=== PATIENT | male | born 1960 | race Caucasian/White ===

== ENCOUNTER 2017-09-23 13:05 | Inpatient (IN) | END 2017-09-24 16:08 | disposition home or self-care (01) | DRG 69 ==

== ENCOUNTER 2018-08-07 10:00 | Inpatient (IN) | payer OTHER ==
[2018-08-04 17:03] VITALS: BMI 27.0
[2018-08-07] VITALS (20 sets, daily range): BP systolic 144–171; BP diastolic 77–91; PULSE 75–100; RESP 13–18; Ht 167.6 cm; Wt 78.1 kg
[~2018-08-07] VITALS: Ht 167.6 cm; Wt 78.1 kg
[~2018-08-07 10:00] MED LIST: AMLO-145 PO; ASPI325T32 PO; ATOR40TA68 PO; BENA40TA56 PO; CEFAZOLIN 1 GM INJ ONE; FENO145T37 PO; HYDR-3672 PO; HYDR25TA6 PO; LORA10TA3 PO; METF-480 PO; ROCURONIUM 50 MG INJ ONE
[2018-08-07] MEDS ORDERED: CETI10TA34 PO (11:51)
[2018-08-07] MEDS ORDERED: ATOR10TA65 PO (11:52)
[2018-08-07] MEDS ORDERED: CETI10TA19 PO (11:53)
[2018-08-07] MEDS ORDERED: POLYMYXIN/BACITRACIN 1L IRRIG ONE (13:05)
--- NOTE | 2018-08-07 13:10 | PREAC ---
Date/Time of Note Date/Time of Note DATE: 08/07/18 TIME: 13:08 Anesthesia Eval and Record Evaluation Time Pre-Procedure Interview DATE: 08/07/18 TIME: 13:08 Age 57 Sex male NPO: 8 hrs Preoperative diagnosis ABDOMINAL WALL DEFECT, VENTRAL HERNIA Planned procedure OPEN COMPONENT SEPERATION WITH MESH, OVETRAL HERNIA REPAIR Past Medical History Past Medical History: Includes Cardio: HTN, Dyslipidemia Endo: Diabetes Neuro: Other (tia) Surgery & Anesthesia Issues No known issue Meds Anticoagulation: No Beta Jaci within 24 hr: No Reason Beta Jaci not given: Pt. not on B-Jaci Active Scripts Aspirin* (Aspirin* EC) 325 Mg Tab, 325 MG PO DAILY, #90 TAB Prov:CHEPE SANDERSON MD 09/24/17 Reported Medications Atorvastatin Calcium (Atorvastatin Calcium) 10 Mg Tablet, 10 MG PO QHS, #30 TAB 08/07/18 Cetirizine Hcl* (Cetirizine Hcl*) 10 Mg Tab.chew, 10 MG PO DAILY, #30 TAB 08/07/18 Amlodipine Besylate* (Amlodipine Besylate*) 5 Mg Tablet, 5 MG PO QPM, #30 TAB 09/23/17 Fenofibrate Nanocrystallized* (Fenofibrate*) 145 Mg Tablet, 145 MG PO DAILY, TAB 09/23/17 Metformin* (Glucophage*) 850 Mg Tablet, 850 MG PO WITH MEALS, #90 TAB 09/23/17 Hydralazine Hcl* (Hydralazine Hcl*) 50 Mg Tab, 50 MG PO DAILY, #60 TAB 09/23/17 Benazepril Hcl* (Benazepril Hcl*) 40 Mg Tablet, 40 MG PO DAILY, #30 TAB 09/23/17 Hydrochlorothiazide* (Hydrochlorothiazide*) 25 Mg Tab, 25 MG PO DAILY, #60 TAB 04/23/16 Discontinued Reported Medications Cetirizine Hcl* (Cetirizine Hcl*) 10 Mg Tablet, 10 MG PO DAILY 08/07/18 Loratadine* (Loratadine*) 10 Mg Tablet, 10 MG PO DAILY, #30 TAB 09/23/17 Discontinued Scripts Atorvastatin* (Atorvastatin*) 40 Mg Tablet, 40 MG PO QHS, #90 TAB Prov:CHEPE SANDERSON MD 09/24/17 Current Medications Cefazolin Sodium/ Dextrose 50 ml @ 100 mls/hr PRE-OP ONCE IVPB ; Start 08/07/18 at 13:30; Stop 08/07/18 at 13:59 Sodium Chloride 1,000 ml @ 75 mls/hr [id number] ONCE IV ; Start 08/07/18 at 13:30; Stop 08/08/18 at 02:49 Meds reviewed: Yes Allergies Coded Allergies: No Known Allergy (Unverified , 09/23/17) Allergies Reviewed: Yes Labs/Studies Labs Reviewed: Reviewed by anesthesiologist test: N/A Studies: ECG (SR), CXR (NL) Pre-procedure Exam Last vitals Vital Signs Date Temp Pulse Resp B/P (MAP) Pulse Ox O2 O2 Flow FiO2 Time Delivery Rate 08/07/18 96.0 75 18 146/78 97 Room Air 12:59 (100) Airway: Adequate mouth opening Mallampati: Mallampati II Teeth: Normal Lung: Normal Heart: Normal ASA Physical Status ASA physical status: 2 Emergency: None Planned Anesthetic General/MAC: ETT Nerve block: TAP (bilateral) Planned Pain Management Single shot nerve block, Parenteral pain med Pre-operative Attestations Prior to commencing anesthesia and surgery, the patient was re-evaluated, there was verification of: *The patient's identity *The results of appropriate recent lab work and preoperative vital signs *The above evaluation not changing prior to induction *Anesthetic plan, risk benefits, alternative and complications discussed with patient/family; questions answered; patient/family understands, accepts and wishes to proceed. LIZY BYERS MD Aug 07, 2018 13:10
[2018-08-07] MEDS ORDERED: MIDAZOLAM 1 MG/ML 2 ML INJ ONE (13:14)
[2018-08-07] MEDS ORDERED: PROPOFOL 20 ML ONE (13:14)
[2018-08-07] MEDS ORDERED: METOCLOPRAMIDE 10 MG INJ ONE (13:15)
[2018-08-07] MEDS ORDERED: ROPIVACAINE 0.5 % 30 ML VIAL ONE (13:15)
[2018-08-07] MEDS ORDERED: ONDANSETRON 4 MG INJ ONE (13:15)
[2018-08-07] MEDS ORDERED: DIPHENHYDRAMINE 50 MG INJ IV PRN (13:30)
[2018-08-07] MEDS ORDERED: CEFAZOLIN 2 GM/50 ML (PMX) 50 ML IVPB ONE (13:30)
[2018-08-07] MEDS ORDERED: ONDANSETRON 4 MG INJ IV PRN (13:30)
[2018-08-07] MEDS ORDERED: LABETALOL HCL 20MG INJ IV PRN (13:30)
[2018-08-07] MEDS ORDERED: MEPERIDINE 25 MG INJ IV PRN (13:30)
[2018-08-07] MEDS ORDERED: SOD CHLORIDE 0.9% 1,000 ML IV ONE (13:30)
[2018-08-07] MEDS ORDERED: HYDROmorphONE 1 MG/5 ML IV SYRINGE IV PRN ×3 (13:30)
[2018-08-07] MEDS ORDERED: hydrALAzine 20 MG INJ IV PRN (13:30)
[2018-08-07] MEDS ORDERED: HYDROmorphONE 2 MG/ML SYG ONE (13:49)
[2018-08-07] MEDS ORDERED: ROCURONIUM 50 MG INJ ONE (13:54)
[2018-08-07] MEDS ORDERED: NEOSTIGMINE 10 MG INJ ONE (14:43)
[2018-08-07] MEDS ORDERED: BUPIVACAINE 0.25% (MPF) 30 ML INJ ONE (14:43)
[2018-08-07] MEDS ORDERED: GLYCOPYRROLATE 0.4 MG INJ ONE (14:43)
[2018-08-07] MEDS ORDERED: HYDROmorphONE 0.2 MG/ML PCA IV SCH (15:00)
[2018-08-07] MEDS ORDERED: NALOXONE (0.4 MG/ML) INJ IV PRN (15:00)
[2018-08-07] MEDS ORDERED: EPHEDrine 50 MG INJ ONE (15:03)
--- NOTE | 2018-08-07 15:08 | OPR ---
Date/Time of Note Date/Time of Note DATE: 08/07/18 TIME: 14:54 Operative Report Procedure Date: Aug 07, 2018 Preoperative Diagnosis abdominal wall defect midepigastric ventral hernia umbilical hernia Postoperative Diagnosis same Operation/Procedure Performed 1. right rectus musculocutaneous flap cpt code 72576 2. left rectus musculocutaneous flap cpt code 03292 3. midepigastric incarcerated ventral hernia repair cpt code 76842 4. implantation fo 15 x 15 polypropylene mesh x 2 cpt code 19441 5. incarcerated umbilical hernia repair cpt code 6. localized adjacent tissue transfer with the use of skin flaps 69 sq cm defect of the abdomen 7. open lysis of adhesions 8. therapeutic injection of subcutaneous local anesthesia Surgeon see signature line Registered Nurse Renal Shola Marin Anesthesia Type: general Estimated Blood Loss: 10 - 50 ml's Transfusion none Specimen none Grafts/Implants none Complications none Pt Condition Post Procedure: stable Indications This is a 57-year-old male with a very large abdominal wall defect and a mid epigastric ventral hernia and umbilical hernia. He requires surgical repair. Risks alternatives benefits and percent were discussed the patient. In particular potential complications including but not limited to bleeding infection mesh infection mesh migration and need for additional operations were discussed the patient. In addition abdominal contour changes were discussed the patient. Patient expressed understanding and consents to the operation. Procedure Description Patient is taken to the OR and prepped and draped in usual sterile fashion. Surgical time was performed. IV antibiotics were given. Midline generous incis ion was made from the subxiphoid region around to the area of the anupam-umbilicus and inferior to the umbilicus. Dissection with cautery was carried down to the midepigastric area where the decussation of the rectus sheath is found. This was then divided and opened. This was carried superiorly. A mid epigastric hernia is identified as incarcerated. Lysis of adhesions performed and this hernia is then manually reduced. This incision was carried superiorly to the xiphoid area and inferiorly to the infra umbilical area. The left rectus sheath is identified in the left muscular cutaneous rectus flap is developed. The retrorectus space was then entered with cautery. This incision was extended superiorly and inferiorly all the way down to the infraumbilical area and superiorly to the subxiphoid area. Then the right rectus muscular cutaneous flap was developed. The retrorectus space in the right side was then entered with cautery. This incision extended superiorly to the xiphoid region and inferiorly to the infraumbilical region. The posterior rectus sheath is then closed with a running #1 loop PDS from superior to inferior and inferior superior and tied in the middle. The umbilical hernia is identified. Lysis of adhesions was performed and the umbilical hernia is then manually reduced and the defect was closed. The defect is closed with interrupted #1 Prolenes. Right and left skin flaps were developed. This allowed placement of interrupted #1 Prolene suture to affix the polypropylene mesh as an underlay in the retrorectus space. The midline defect was large and 215 x 15 cm polypropylene meshes were juxtaposed with interrupted #1 Prolenes. This allowed coverage of the whole defect with the mesh. The 2 pieces of mesh was then affixed as an underlay as mentioned with interrupted #1 Prolene. Good hemostasis was established in this level of the abdominal wall. The anterior rectus sheath was then closed with running #1 loop PDS from superior to inferior and inferior superior and tied in the midline. The anterior rectus sheath was then also reinforced with additional fixation points with interrupted #1 Prolene. The skin flaps that were developed was examined for hemostasis and hemostasis was established. Additionally due to tissue defect localized adjacent tissue transfer with these of skin flaps was performed. Multilayer closure with interrupted 3-0 Vicryl and skin estefany. Therapeutic subcutaneous local anesthesia was injected throughout the incision site. A tap block was also performed by the anesthesiologist. Dry dressings were applied. Joe BARRETO Aug 07, 2018 15:08
--- NOTE | 2018-08-07 16:01 | PAC ---
Date/Time of Note Date/Time of Note DATE: 08/07/18 TIME: 16:00 Post-Anesthesia Notes Post-Anesthesia Note Last documented vital signs Vital Signs Date Temp Pulse Resp B/P (MAP) Pulse Ox O2 O2 Flow FiO2 Time Delivery Rate 08/07/18 98.1 84 14 163/85 98 Nasal 3.0 15:46 (111) Cannula 08/07/18 98.0 15:06 Activity: WNL Respiratory function: WNL Cardiovascular function: WNL Mental status: Baseline Pain reasonably controlled: Yes Hydration appropriate: Yes Nausea/Vomiting absent: No LIZY BYERS MD Aug 07, 2018 16:01
[2018-08-07] MEDS: CEFAZOLIN 2 GM/50 ML (PMX) 50 ML IVPB SCH ×2 (16:04→23:52)
[2018-08-07] MEDS ORDERED: ACETAMINOPHEN 325 MG TAB PO PRN (20:00)
[2018-08-07] MEDS: SOD CHLORIDE 0.9% 1,000 ML IV SCH (20:19)
[2018-08-07] MEDS: ONDANSETRON 4 MG INJ IV PRN (21:19)
[2018-08-07] MEDS ORDERED: DEXTROSE 50% 50 ML SYRINGE IV PRN ×2 (22:00)
[2018-08-07] MEDS ORDERED: GLUCOSE GEL 15 GRAM TUBE BUCCAL PRN (22:00)
[2018-08-07] MEDS ORDERED: GLUCOSE GEL 15 GRAM TUBE PO PRN ×2 (22:00)
[2018-08-07] MEDS ORDERED: GLUCAGON 1 MG INJ IM PRN (22:00)
--- NOTE | 2018-08-08 00:21 | HP ---
DATE OF ADMISSION: 08/07/2018 CHIEF COMPLAINT AND HISTORY OF PRESENT ILLNESS: The patient is 57-year-old gentleman with a history of hypertension, diabetes, dyslipidemia, and a history of TIA. The patient was seen by Dr. Fields as an outpatient for a mid epigastric ventral hernia and umbilical hernia. [facility] Prior to surgery, the patient has a very large abdominal wall defect and a mid ep igastric ventral hernia and umbilical hernia. The patient underwent a surgical repair and is being a dmitted for further evaluation and management. The patient denies any chest pain or shortness of nahid ath. No history of headache, dizziness, syncope. No recent history of TIA since last year. No hist ory of leg edema. No history of resting leg pain. No history of numbness, tingling, or weakness in any extremity. No history of headache, dizziness, syncope. No history of cough. REVIEW OF SYSTEMS: Other than postoperative pain, rest of the systems is unremarkable. PAST MEDICAL HISTORY: As stated above. In addition, the patient has history of TIA back in 09/2017. The patient had negative MRI of the brain. PAST SURGICAL HISTORY: None. FAMILY HISTORY: Positive for diabetes, hypertension, and CVA. SOCIAL HISTORY: No smoking or alcohol abuse. ALLERGIES: NO KNOWN DRUG ALLERGIES. PHYSICAL EXAMINATION: GENERAL: The patient is awake, alert, follows simple commands. VITAL SIGNS: Temperature 98, pulse 81, respirations 14, blood pressure 154/77, O2 saturation 99% on 3 liters nasal canula. HEENT: No eye discharge or redness. Conjunctivae normal. Oropharynx clear. NECK: Supple. No thyromegaly. CHEST: Fairly clear. CARDIOVASCULAR: S1, S2 normal, no murmur. ABDOMEN: The patient is status post surgery. EXTREMITIES: No edema. Pedal pulse palpable. SKIN: Without acute rash. NEUROLOGIC: The patient is awake, alert with no gross focal deficit. LABORATORY DATA: Done today, WBC 9.8, hemoglobin 13.3, platelet 181. Sodium 146, potassium 4, BUN 1 6, creatinine 1, glucose 98. Liver enzymes normal. IMPRESSION: 1. Large abdominal wall defect in mid epigastric ventral hernia and umbilical hernia status post fransisco gical repair. 2. Hypertension. 3. Diabetes mellitus. 4. Dyslipidemia. 5. History of cerebrovascular accident. 6. History of transient ischemic attack. PLAN: The patient admitted on medical floor. The patient will be started on Norvasc, benazepril and p.r.n. hydralazine for hypertension and will be continued on TriCor and Lipitor as at home. The pat ient also takes metformin which will be continued. The patient's hemoglobin A1c back in September 2017 was only 5.9 and blood sugar this morning was 98. We will use SCD for DVT prophylaxis. The patient ramesh l continue baby aspirin starting tomorrow. We will also start him on sliding scale insulin. Dictated By: EFRAIN DOMINGUEZ MD AB/NTS Conf#: [id number] DID#: [id number] CC: CHIN FIELDS MD;*End*
[2018-08-08] MEDS: SOD CHLORIDE 0.9% 1,000 ML IV SCH ×5 (00:50→20:50)
[2018-08-08 02:00] VITALS: BP 168/80; PULSE 96; RESP 18
[2018-08-08] MEDS: ONDANSETRON 4 MG INJ IV PRN ×2 (02:57→12:36)
[2018-08-08] MEDS: CEFAZOLIN 2 GM/50 ML (PMX) 50 ML IVPB SCH (06:02)
[2018-08-08 06:18] VITALS: BP 158/80; PULSE 87; RESP 18
[2018-08-08 07:30] VITALS: BP 167/81; PULSE 89; RESP 20
[2018-08-08] MEDS: BENAZEPRIL 40 MG TAB PO SCH (08:25)
[2018-08-08] MEDS: ASPIRIN (EC) 81 MG TAB PO SCH (08:26)
[2018-08-08] MEDS: metFORMIN 850 MG TAB PO SCH ×3 (08:29→17:30)
[2018-08-08] MEDS: FENOFIBRATE 145 MG TAB PO SCH (08:30)
[2018-08-08] MEDS: INSULIN ASPART [NOVOLOG] 3 ML PEN SC SCH ×4 (08:35→21:00)
[2018-08-08 10:09] VITALS: BP 154/82; PULSE 86; RESP 18
--- NOTE | 2018-08-08 13:04 | PN ---
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0 Basophils % 0.3 0.1 Nucleated Red Blood 0.0 0.0 Cells % Immature 0.050 H 0.060 H Granulocytes # Neutrophils # 7.6 H 10.0 H Lymphocytes # 1.5 1.0 Monocytes # 0.6 0.9 Eosinophils # 0.0 0.0 Basophils # 0.0 0.0 Nucleated Red Blood 0.0 0.0 Cells # Sodium Level 146 H 139 Potassium Level 4.0 3.7 Chloride Level 106 101 Carbon Dioxide Level 25 26 Anion Gap 15 H 12 Blood Urea Nitrogen 16 13 Creatinine 1.02 0.85 Est Glomerular > 60 > 60 Filtrat Rate mL/min Glucose Level 98 127 Calcium Level 8.6 8.3 L Total Bilirubin 0.5 0.7 Direct Bilirubin 0.00 0.00 Indirect Bilirubin 0.5 0.7 Aspartate Amino 29 24 Transf (AST/SGOT) Alanine 31 26 Aminotransferase (AL T/SGPT) Alkaline Phosphatase 59 56 Total Protein 7.5 6.9 Albumin 4.6 4.1 Globulin 2.90 2.80 Albumin/Globulin 1.58 1.46 Ratio Bedside Glucose 160 153 Subjective 24 Hr Interval Summary Free Text/Dictation some nausea otherwise no other issues Exam/Review of Systems Exam Vitals Vital Signs Date Temp Pulse Resp B/P (MAP) Pulse Ox O2 O2 Flow FiO2 Time Delivery Rate 08/08/18 98.5 86 18 154/82 98 Nasal 3.0 10:09 (106) Cannula Intake and Output 08/07/18 08/07/18 08/08/18 1515:00 23:00 07:00 IntakeIntake Total 1000 ml 50 ml 1050 ml OutputOutput Total 30 ml BalanceBalance 970 ml 50 ml 1050 ml Exam c/d/i Results Results 24hrs Laboratory Tests Test 08/07/18 15:56 08/08/18 06:47 08/08/18 08:29 08/08/18 12:38 White Blood Count 9.8 # 12.0 #H Red Blood Count 4.21 L 3.85 L Hemoglobin 13.3 L 12.2 L Hematocrit 39.8 L 36.0 L Mean Corpuscular 94.5 93.5 Volume Mean Corpuscular 31.6 31.7 Hemoglobin Mean Corpuscular 33.4 33.9 Hemoglobin Concent Red Cell 13.0 12.9 Distribution Width Platelet Count 181 174 Mean Platelet Volume 10.8 H 10.9 H Immature 0.500 H 0.500 H Granulocytes % Neutrophils % 77.6 H 83.9 H Lymphocytes % 15.5 8.1 L Monocytes % 5.8 7.4 Eosinophils % 0.3 0.0 Basophils % 0.3 0.1 Nucleated Red Blood 0.0 0.0 Cells % Immature 0.050 H 0.060 H Granulocytes # Neutrophils # 7.6 H 10.0 H Lymphocytes # 1.5 1.0 Monocytes # 0.6 0.9 Eosinophils # 0.0 0.0 Basophils # 0.0 0.0 Nucleated Red Blood 0.0 0.0 Cells # Sodium Level 146 H 139 Potassium Level 4.0 3.7 Chloride Level 106 101 Carbon Dioxide Level 25 26 Anion Gap 15 H 12 Blood Urea Nitrogen 16 13 Creatinine 1.02 0.85 Est Glomerular > 60 > 60 Filtrat Rate mL/min Glucose Level 98 127 Calcium Level 8.6 8.3 L Total Bilirubin 0.5 0.7 Direct Bilirubin 0.00 0.00 Indirect Bilirubin 0.5 0.7 Aspartate Amino 29 24 Transf (AST/SGOT) Alanine 31 26 Aminotransferase (AL T/SGPT) Alkaline Phosphatase 59 56 Total Protein 7.5 6.9 Albumin 4.6 4.1 Globulin 2.90 2.80 Albumin/Globulin 1.58 1.46 Ratio Bedside Glucose 160 153 Medications Medication Current Medications Cefazolin Sodium/ Dextrose 50 ml @ 100 mls/hr Q8H IVPB Last administered on 08/08/18 06:02; Admin Dose 100 MLS/HR; Start 08/07/18 at 15:00; Stop 08/08/18 at 14:59 Ketorolac Tromethamine (Toradol) 15 mg Q6H PRN IV PAIN; Start 08/07/18 at 15:00; Stop 08/10/18 at 14:59 Sodium Chloride 1,000 ml @ 100 mls/hr Q10H IV Last administered on 08/08/18 05:52; Admin Dose 100 MLS/HR; Start 08/07/18 at 14:50 Naloxone HCl (Narcan) 0.2 mg PRN PRN IV RR < 8; Start 08/07/18 at 15:00 Hydromorphone HCl (Dilaudid MANAGER SHIFT) Q4PCA IV Last administered on 08/07/18 16:06; Admin Dose 6 MG; Start 08/07/18 at 15:00 Acetaminophen (Tylenol Tab) 650 mg Q6H PRN PO MILD PAIN(1-3)OR ELEVATED TEMP Last administered on 08/08/18 05:51; Admin Dose 650 MG; Start 08/07/18 at 20:00 Ondansetron HCl (Zofran Inj) 4 mg Q6H PRN IV NAUSEA AND/OR VOMITING Last administered on 08/08/18 12:36; Admin Dose 4 MG; Start 08/07/18 at 20:00 Hydralazine HCl (Apresoline) 10 mg Q4 PRN PO ELEVATED BLOOD PRESSURE Last administered on 08/08/18 03:46; Admin Dose 10 MG; Start 08/07/18 at 21:30 Amlodipine Besylate (Norvasc) 5 mg QPM PO ; Start 08/08/18 at 21:00 Atorvastatin Calcium (Lipitor) 10 mg QHS PO ; Start 08/08/18 at 21:00 Benazepril HCl (Lotensin) 40 mg DAILY PO Last administered on 08/08/18 08:25; Admin Dose 40 MG; Start 08/08/18 at 09:00 Fenofibrate (Tricor) 145 mg DAILY PO Last administered on 08/08/18 08:30; Ad min Dose 145 MG; Start 08/08/18 at 09:00 Metformin HCl (Glucophage) 850 mg WITH MEALS PO Last administered on 08/08/18 12:39; Admin Dose 850 MG; Start 08/08/18 at 08:00 Miscellaneous Information 1 ea NOTE XX ; Start 08/07/18 at 22:00 Glucose (Glutose) 15 gm Q15M PRN PO DECREASED GLUCOSE; Start 08/07/18 at 22:00 Glucose (Glutose) 22.5 gm Q15M PRN PO DECREASED GLUCOSE; Start 08/07/18 at 22:00 Dextrose (D50w Syringe) 25 ml Q15M PRN IV DECREASED GLUCOSE; Start 08/07/18 at 22:00 Dextrose (D50w Syringe) 50 ml Q15M PRN IV DECREASED GLUCOSE; Start 08/07/18 at 22:00 Glucagon (Glucagen) 1 mg Q15M PRN IM DECREASED GLUCOSE; Start 08/07/18 at 22:00 Glucose (Glutose) 15 gm Q15M PRN BUCCAL DECREASED GLUCOSE; Start 08/07/18 at 22:00 Insulin Aspart (Novolog Insulin Pen) NOVOLOG *MILD* ALGORITHM WITH MEALS BEDTIME SC Last administered on 08/08/18 12:41; Admin Dose 1 UNIT; Start 08/08/18 at 08:00 Aspirin (Halfprin) 81 mg DAILY PO Last administered on 08/08/18 08:26; Admin Dose 81 MG; Start 08/08/18 at 09:00 Joe BARRETO Aug 08, 2018 13:04
[2018-08-08] MEDS ORDERED: morphine 2 MG INJ IV PRN (13:30)
--- NOTE | 2018-08-08 14:29 | PN ---
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 Assessment/Plan 1. Large abdominal wall defect in mid epigastric ventral hernia and umbilical hernia status post surgical repair. 2. Hypertension. 3. Diabetes mellitus. 4. Dyslipidemia. 5. History of cerebrovascular accident. 6. History of transient ischemic attack. Further recommendations based on clinical course. Plan of care discussed with Dr. Carrizales. Result Diagram: 08/08/18 0647 08/08/18 0647 Results 24hrs Laboratory Tests Test 08/07/18 15:56 08/08/18 06:47 08/08/18 08:29 08/08/18 12:38 White Blood Count 9.8 # 12.0 #H Red Blood Count 4.21 L 3.85 L Hemoglobin 13.3 L 12.2 L Hematocrit 39.8 L 36.0 L Mean Corpuscular 94.5 93.5 Volume Mean Corpuscular 31.6 31.7 Hemoglobin Mean Corpuscular 33.4 33.9 Hemoglobin Concent Red Cell 13.0 12.9 Distribution Width Platelet Count 181 174 Mean Platelet Volume 10.8 H 10.9 H Immature 0.500 H 0.500 H Granulocytes % Neutrophils % 77.6 H 83.9 H Lymphocytes % 15.5 8.1 L Monocytes % 5.8 7.4 Eosinophils % 0.3 0.0 Basophils % 0.3 0.1 Nucleated Red Blood 0.0 0.0 Cells % Immature 0.050 H 0.060 H Granulocytes # Neutrophils # 7.6 H 10.0 H Lymphocytes # 1.5 1.0 Monocytes # 0.6 0.9 Eosinophils # 0.0 0.0 Basophils # 0.0 0.0 Nucleated Red Blood 0.0 0.0 Cells # Sodium Level 146 H 139 Potassium Level 4.0 3.7 Chloride Level 106 101 Carbon Dioxide Level 25 26 Anion Gap 15 H 12 Blood Urea Nitrogen 16 13 Creatinine 1.02 0.85 Est Glomerular > 60 > 60 Filtrat Rate mL/min Glucose Level 98 127 Calcium Level 8.6 8.3 L Total Bilirubin 0.5 0.7 Direct Bilirubin 0.00 0.00 Indirect Bilirubin 0.5 0.7 Aspartate Amino 29 24 Transf (AST/SGOT) Alanine 31 26 Aminotransferase (AL T/SGPT) Alkaline Phosphatase 59 56 Total Protein 7.5 6.9 Albumin 4.6 4.1 Globulin 2.90 2.80 Albumin/Globulin 1.58 1.46 Ratio Bedside Glucose 160 153 Exam/Review of Systems Exam Vitals Vital Signs Date Temp Pulse Resp B/P (MAP) Pulse Ox O2 O2 Flow FiO2 Time Delivery Rate 08/08/18 17 13:07 08/08/18 98.5 86 154/82 98 Nasal 3.0 10:09 (106) Cannula Intake and Output 08/07/18 08/07/18 08/08/18 1515:00 23:00 07:00 IntakeIntake Total 1000 ml 50 ml 1050 ml OutputOutput Total 30 ml BalanceBalance 970 ml 50 ml 1050 ml Constitutional: alert, oriented Respiratory: clear to auscultation Cardiovascular: nl pulses Gastrointestinal: soft, other (Status post surgery with midline surgical incision intact with dressing) Musculoskeletal: nl extremities to inspection Extremities: normal pulses Neurological: nl mental status Results Results 24hrs Laboratory Tests Test 08/07/18 15:56 08/08/18 06:47 08/08/18 08:29 08/08/18 12:38 White Blood Count 9.8 # 12.0 #H Red Blood Count 4.21 L 3.85 L Hemoglobin 13.3 L 12.2 L Hematocrit 39.8 L 36.0 L Mean Corpuscular 94.5 93.5 Volume Mean Corpuscular 31.6 31.7 Hemoglobin Mean Corpuscular 33.4 33.9 Hemoglobin Concent Red Cell 13.0 12.9 Distribution Width Platelet Count 181 174 Mean Platelet Volume 10.8 H 10.9 H Immature 0.500 H 0.500 H Granulocytes % Neutrophils % 77.6 H 83.9 H Lymphocytes % 15.5 8.1 L Monocytes % 5.8 7.4 Eosinophils % 0.3 0.0 Basophils % 0.3 0.1 Nucleated Red Blood 0.0 0.0 Cells % Immature 0.050 H 0.060 H Granulocytes # Neutrophils # 7.6 H 10.0 H Lymphocytes # 1.5 1.0 Monocytes # 0.6 0.9 Eosinophils # 0.0 0.0 Basophils # 0.0 0.0 Nucleated Red Blood 0.0 0.0 Cells # Sodium Level 146 H 139 Potassium Level 4.0 3.7 Chloride Level 106 101 Carbon Dioxide Level 25 26 Anion Gap 15 H 12 Blood Urea Nitrogen 16 13 Creatinine 1.02 0.85 Est Glomerular > 60 > 60 Filtrat Rate mL/min Glucose Level 98 127 Calcium Level 8.6 8.3 L Total Bilirubin 0.5 0.7 Direct Bilirubin 0.00 0.00 Indirect Bilirubin 0.5 0.7 Aspartate Amino 29 24 Transf (AST/SGOT) Alanine 31 26 Aminotransferase (AL T/SGPT) Alkaline Phosphatase 59 56 Total Protein 7.5 6.9 Albumin 4.6 4.1 Globulin 2.90 2.80 Albumin/Globulin 1.58 1.46 Ratio Bedside Glucose 160 153 Medications Medication Current Medications Cefazolin Sodium/ Dextrose 50 ml @ 100 mls/hr Q8H IVPB Last administered on 08/08/18 06:02; Admin Dose 100 MLS/HR; Start 08/07/18 at 15:00; Stop 08/08/18 at 14:59 Ketorolac Tromethamine (Toradol) 15 mg Q6H PRN IV PAIN; Start 08/07/18 at 15:00; Stop 08/10/18 at 14:59 Sodium Chloride 1,000 ml @ 100 mls/hr Q10H IV Last administered on 08/08/18at 05:52; Admin Dose 100 MLS/HR; Start 08/07/18 at 14:50 Acetaminophen (Tylenol Tab) 650 mg Q6H PRN PO MILD PAIN(1-3)OR ELEVATED TEMP Last administered on 08/08/18 05:51; Admin Dose 650 MG; Start 08/07/18 at 20:00 Hydralazine HCl (Apresoline) 10 mg Q4 PRN PO ELEVATED BLOOD PRESSURE Last administered on 08/08/18 03:46; Admin Dose 10 MG; Start 08/07/18 at 21:30 Amlodipine Besylate (Norvasc) 5 mg QPM PO ; Start 08/08/18 at 21:00 Atorvastatin Calcium (Lipitor) 10 mg QHS PO ; Start 08/08/18 at 21:00 Benazepril HCl (Lotensin) 40 mg DAILY PO Last administered on 08/08/18 08:25; Admin Dose 40 MG; Start 08/08/18 at 09:00 Fenofibrate (Tricor) 145 mg DAILY PO Last administered on 08/08/18 08:30; Admin Dose 145 MG; Start 08/08/18 at 09:00 Metformin HCl (Glucophage) 850 mg WITH MEALS PO Last administered on 08/08/18 12:39; Admin Dose 850 MG; Start 08/08/18 at 08:00 Miscellaneous Information 1 ea NOTE XX ; Start 08/07/18 at 22:00 Glucose (Glutose) 15 gm Q15M PRN PO DECREASED GLUCOSE; Start 08/07/18 at 22:00 Glucose (Glutose) 22.5 gm Q15M PRN PO DECREASED GLUCOSE; Start 08/07/18 at 22:00 Dextrose (D50w Syringe) 25 ml Q15M PRN IV DECREASED GLUCOSE; Start 08/07/18 at 22:00 Dextrose (D50w Syringe) 50 ml Q15M PRN IV DECREASED GLUCOSE; Start 08/07/18 at 22:00 Glucagon (Glucagen) 1 mg Q15M PRN IM DECREASED GLUCOSE; Start 08/07/18 at 22:00 Glucose (Glutose) 15 gm Q15M PRN BUCCAL DECREASED GLUCOSE; Start 08/07/18 at 22:00 Insulin Aspart (Novolog Insulin Pen) NOVOLOG *MILD* ALGORITHM WITH MEALS BEDTIME SC Last administered on 08/08/18 12:41; Admin Dose 1 UNIT; Start 08/08/18 at 08:00 Aspirin (Halfprin) 81 mg DAILY PO Last administered on 08/08/18 08:26; Admin Dose 81 MG; Start 08/08/18 at 09:00 Ondansetron HCl (Zofran Inj) 4 mg Q4H PRN IV NAUSEA AND/OR VOMITING; Start 08/08/18 at 16:00 Morphine Sulfate (morphine) 2 mg Q2H PRN IV SEVERE PAIN LEVEL 7-10; Start 08/08/18 at 13:30 NILAM WICK Aug 08, 2018 14:29
[2018-08-08] MEDS ORDERED: ONDANSETRON 4 MG INJ IV PRN (16:00)
[2018-08-08 20:00] VITALS: BP 153/83; PULSE 89; RESP 19
[2018-08-08] MEDS ORDERED: ATORVASTATIN 10 MG TAB PO SCH (21:00)
[2018-08-08] MEDS ORDERED: AMLODIPINE 5 MG TAB PO SCH (21:00)
[2018-08-09 02:00] VITALS: BP 161/78; PULSE 87; RESP 18
[2018-08-09] MEDS: KETOROLAC 15 MG INJ IV PRN ×2 (02:09→12:44)
[2018-08-09] MEDS: SOD CHLORIDE 0.9% 1,000 ML IV SCH ×2 (04:55→06:50)
[2018-08-09 06:40] VITALS: BP 98/62; PULSE 80; RESP 16
[2018-08-09 07:55] VITALS: BP 113/56; PULSE 88; RESP 18
[2018-08-09] MEDS: BENAZEPRIL 40 MG TAB PO SCH (09:01)
[2018-08-09] MEDS: metFORMIN 850 MG TAB PO SCH ×2 (09:01→12:43)
[2018-08-09] MEDS: ASPIRIN (EC) 81 MG TAB PO SCH (09:01)
[2018-08-09] MEDS: FENOFIBRATE 145 MG TAB PO SCH (09:01)
[2018-08-09] MEDS: INSULIN ASPART [NOVOLOG] 3 ML PEN SC SCH ×2 (09:05→12:00)
--- NOTE | 2018-08-09 11:45 | PN ---
Date/Time of Note Date/Time of Note DATE: 08/09/18 TIME: 11:41 Assessment/Plan VTE Prophylaxis Risk score (from Nsg)>0 risk: 3 SCD applied (from Ns): Yes Pharmacological prophylaxis: other Lines/Catheters IV Catheter Type (from Nrsg): Peripheral IV Urinary Cath still in place: No Assessment/Plan Assessment/Plan 1. Large abdominal wall defect in mid epigastric ventral hernia and umbilical hernia status post surgical repair. - per surgery 2. Hypertension. 3. Diabetes mellitus. 4. Dyslipidemia. 5. History of cerebrovascular accident. 6. History of transient ischemic attack. Further recommendations based on clinical course. Plan of care discussed with Dr. Carrizales. Result Diagram: 08/09/18 0544 08/09/18 0544 Results 24hrs Laboratory Tests Test 08/08/18 12:38 08/08/18 17:25 08/08/18 21:02 08/09/18 05:44 Bedside Glucose 153 119 138 White Blood Count 10.2 Red Blood Count 3.10 L Hemoglobin 9.9 L Hematocrit 28.9 L Mean Corpuscular 93.2 Volume Mean Corpuscular 31.9 Hemoglobin Mean Corpuscular 34.3 Hemoglobin Concent Red Cell 12.9 Distribution Width Platelet Count 156 Mean Platelet Volume 11.1 H Immature 0.600 H Granulocytes % Neutrophils % 79.1 H Lymphocytes % 9.3 L Monocytes % 10.9 Eosinophils % 0.0 Basophils % 0.1 Nucleated Red Blood 0.0 Cells % Immature 0.060 H Granulocytes # Neutrophils # 8.1 H Lymphocytes # 1.0 Monocytes # 1.1 H Eosinophils # 0.0 Basophils # 0.0 Nucleated Red Blood 0.0 Cells # Sodium Level 139 Potassium Level 3.7 Chloride Level 104 Carbon Dioxide Level 27 Anion Gap 8 Blood Urea Nitrogen 15 Creatinine 0.93 Est Glomerular > 60 Filtrat Rate mL/min Glucose Level 124 Calcium Level 7.9 L Test 08/09/18 06:55 08/09/18 09:00 Bedside Glucose 117 142 Subjective 24 Hr Interval Summary Free Text/Dictation - NAD - AFEBRILE - Ambulates in hallway; Tolerates diet well; passed gas; no BM yet -- pain is well controlled with Toradol - no new events reported last night Eyes: no complaints ENT: no complaints Respiratory: no complaints Cardiovascular: no complaints Gastrointestinal: no complaints Genitourinary: no complaints Skin: no complaints Neurologic: no complaints Endocrine: no complaints Lymphatic: no complaints Immunologic: no complaints Exam/Review of Systems Exam Vitals Vital Signs Date Temp Pulse Resp B/P (MAP) Pulse Ox O2 O2 Flow FiO2 Time Delivery Rate 08/09/18 98.0 88 18 113/56 95 Room Air 07:55 (75) 08/08/18 3.0 10:09 Intake and Output 08/08/18 08/08/18 08/09/18 1515:00 23:00 07:00 IntakeIntake Total 1600 ml 1365 ml OutputOutput Total 700 ml 225 ml BalanceBalance 900 ml 1140 ml Constitutional: alert, oriented, well developed Psych: nl mood/affect Head: atraumatic Eyes: EOMI, nl lids ENMT: nl external ears & nose Respiratory: clear to auscultation Cardiovascular: nl pulses, other (s1s2) Gastrointestinal: soft, other (surgical abdomen - DDI) Musculoskeletal: nl extremities to inspection Extremities: normal pulses Neurological: nl mental status, nl speech Skin: nl turgor Lymph: nontender Results Results 24hrs Laboratory Tests Test 08/08/18 12:38 08/08/18 17:25 08/08/18 21:02 08/09/18 05:44 Bedside Glucose 153 119 138 White Blood Count 10.2 Red Blood Count 3.10 L Hemoglobin 9.9 L Hematocrit 28.9 L Mean Corpuscular 93.2 Volume Mean Corpuscular 31.9 Hemoglobin Mean Corpuscular 34.3 Hemoglobin Concent Red Cell 12.9 Distribution Width Platelet Count 156 Mean Platelet Volume 11.1 H Immature 0.600 H Granulocytes % Neutrophils % 79.1 H Lymphocytes % 9.3 L Monocytes % 10.9 Eosinophils % 0.0 Basophils % 0.1 Nucleated Red Blood 0.0 Cells % Immature 0.060 H Granulocytes # Neutrophils # 8.1 H Lymphocytes # 1.0 Monocytes # 1.1 H Eosinophils # 0.0 Basophils # 0.0 Nucleated Red Blood 0.0 Cells # Sodium Level 139 Potassium Level 3.7 Chloride Level 104 Carbon Dioxide Level 27 Anion Gap 8 Blood Urea Nitrogen 15 Creatinine 0.93 Est Glomerular > 60 Filtrat Rate mL/min Glucose Level 124 Calcium Level 7.9 L Test 08/09/18 06:55 08/09/18 09:00 Bedside Glucose 117 142 Medications Medication Current Medications Ketorolac Tromethamine (Toradol) 15 mg Q6H PRN IV PAIN Last administered on 08/09/18 02:09; Admin Dose 15 MG; Start 08/07/18 at 15:00; Stop 08/10/18 at 14:59 Sodium Chloride 1,000 ml @ 100 mls/hr Q10H IV Last administered on 08/09/18 04:55; Admin Dose 100 MLS/HR; Start 08/07/18 at 14:50 Acetaminophen (Tylenol Tab) 650 mg Q6H PRN PO MILD PAIN(1-3)OR ELEVATED TEMP Last administered on 08/08/18 05:51; Admin Dose 650 MG; Start 08/07/18 at 20:00 Hydralazine HCl (Apresoline) 10 mg Q4 PRN PO ELEVATED BLOOD PRESSURE Last administered on 08/09/18 01:54; Admin Dose 10 MG; Start 08/07/18 at 21:30 Amlodipine Besylate (Norvasc) 5 mg QPM PO Last administered on 08/08/18 21:05; Admin Dose 5 MG; Start 08/08/18 at 21:00 Atorvastatin Calcium (Lipitor) 10 mg QHS PO Last administered on 08/08/18 21:05; Admin Dose 10 MG; Start 08/08/18 at 21:00 Benazepril HCl (Lotensin) 40 mg DAILY PO Last administered on 08/09/18 09:01; Admin Dose 40 MG; Start 08/08/18 at 09:00 Fenofibrate (Tricor) 145 mg DAILY PO Last administered on 08/09/18 09:01; Admin Dose 145 MG; Start 08/08/18 at 09:00 Metformin HCl (Glucophage) 850 mg WITH MEALS PO Last administered on 08/09/18 09:01; Admin Dose 850 MG; Start 08/08/18 at 08:00 Miscellaneous Information 1 ea NOTE XX ; Start 08/07/18 at 22:00 Glucose (Glutose) 15 gm Q15M PRN PO DECREASED GLUCOSE; Start 08/07/18 at 22:00 Glucose (Glutose) 22.5 gm Q15M PRN PO DECREASED GLUCOSE; Start 08/07/18 at 22:00 Dextrose (D50w Syringe) 25 ml Q15M PRN IV DECREASED GLUCOSE; Start 08/07/18 at 22:00 Dextrose (D50w Syringe) 50 ml Q15M PRN IV DECREASED GLUCOSE; Start 08/07/18 at 22:00 Glucagon (Glucagen) 1 mg Q15M PRN IM DECREASED GLUCOSE; Start 08/07/18 at 22:00 Glucose (Glutose) 15 gm Q15M PRN BUCCAL DECREASED GLUCOSE; Start 08/07/18 at 22:00 Insulin Aspart (Novolog Insulin Pen) NOVOLOG *MILD* ALGORITHM WITH MEALS BE DTIME SC Last administered on 08/09/18 09:05; Admin Dose 1 UNIT; Start 08/08/18 at 08:00 Aspirin (Halfprin) 81 mg DAILY PO Last administered on 08/09/18at 09:01; Admin Dose 81 MG; Start 08/08/18 at 09:00 Ondansetron HCl (Zofran Inj) 4 mg Q4H PRN IV NAUSEA AND/OR VOMITING Last administered on 08/08/18 17:26; Admin Dose 4 MG; Start 08/08/18 at 16:00 Morphine Sulfate (morphine) 2 mg Q2H PRN IV SEVERE PAIN LEVEL 7-10; Start 08/08/18 at 13:30 FAVIOLA CASTREJON Aug 09, 2018 11:45
--- NOTE | 2018-08-09 12:21 | PDOCDIS ---
Discharge Instructions CONDITION [id number] Patient Condition: [id number] Stable HOME CARE INSTRUCTIONS: [id number] Diet Instructions: [id number] Reduced Calorie ACTIVITY: [id number] Activity Restrictions: Peest7x Slowly Increase Activity Rest between Activity Avoid heavy lifting Do not Drive Do not operate Machinery Do not operate Power Tool Avoid Heavy Housework [id number] Bathing Restrictions: [id number] Sponge Bath FOLLOW UP/APPOINTMENTS Follow-up Plan FU with PMD X 1 WEEK FU W/SURGEON RECOMMENDED CALL 911 OR GO TO THE [facility] IF SYMPTOMS GET WORSE- PATIENT VERBALIZED UNDERSTANDING DISCHARGE INSTRUCTIONS DW DR DOMINGUEZ/STAFF FAVIOLA CASTREJON Aug 09, 2018 12:21
--- NOTE | 2018-08-09 12:21 | DS ---
Date/Time of Note Date/Time of Note DATE: 08/09/18 TIME: 12:21 Discharge Summary Admission/Discharge Info Admit Date/Time Aug 07, 2018 at 16:18 Discharge Date/Time Patient Condition: Stable Home Meds Active Scripts Aspirin* (Aspirin* EC) 325 Mg Tab, 325 MG PO DAILY, #90 TAB Prov:CHEPE SANDERSON MD 09/24/17 Reported Medications Atorvastatin Calcium (Atorvastatin Calcium) 10 Mg Tablet, 10 MG PO QHS, #30 TAB 08/07/18 Cetirizine Hcl* (Cetirizine Hcl*) 10 Mg Tab.chew, 10 MG PO DAILY, #30 TAB 08/07/18 Amlodipine Besylate* (Amlodipine Besylate*) 5 Mg Tablet, 5 MG PO QPM, #30 TAB 09/23/17 Fenofibrate Nanocrystallized* (Fenofibrate*) 145 Mg Tablet, 145 MG PO DAILY, TAB 09/23/17 Metformin* (Glucophage*) 850 Mg Tablet, 850 MG PO WITH MEALS, #90 TAB 09/23/17 Hydralazine Hcl* (Hydralazine Hcl*) 50 Mg Tab, 50 MG PO DAILY, #60 TAB 09/23/17 Benazepril Hcl* (Benazepril Hcl*) 40 Mg Tablet, 40 MG PO DAILY, #30 TAB 09/23/17 Hydrochlorothiazide* (Hydrochlorothiazide*) 25 Mg Tab, 25 MG PO DAILY, #60 TAB 04/23/16 Discontinued Reported Medications Cetirizine Hcl* (Cetirizine Hcl*) 10 Mg Tablet, 10 MG PO DAILY 08/07/18 Loratadine* (Loratadine*) 10 Mg Tablet, 10 MG PO DAILY, #30 TAB 09/23/17 Discontinued Scripts Atorvastatin* (Atorvastatin*) 40 Mg Tablet, 40 MG PO QHS, #90 TAB Prov:CHEPE SANDERSON MD 09/24/17 Follow-up Plan FU with PMD X 1 WEEK FU W/SURGEON RECOMMENDED CALL 911 OR GO TO THE [facility] IF SYMPTOMS GET WORSE- PATIENT VERBALIZED UNDERSTANDING DISCHARGE INSTRUCTIONS DW DR DOMINGUEZ/STAFF Primary Care Provider Zak Arias MD Pending Labs Laboratory Tests Test 08/08/18 12:38 08/08/18 17:25 08/08/18 21:02 08/09/18 05:44 Bedside 153 119 138 Glucose mg/dL (70-220) mg/dL (70-220) mg/dL (70-220) White Blood 10.2 Count 10^3/ul (4.8-1 0.8) Red Blood 3.10 Count 10^6/ul (4.70- 6.10) Hemoglobin 9.9 g/dl (14.0-18. 0) Hematocrit 28.9 % (42.0-52.0) Mean 93.2 Corpuscular fl (82.0-101.0 Volume ) Mean 31.9 Corpuscular pg (29.0-33.0) Hemoglobin Mean 34.3 Corpuscular g/dl (32.0-37. Hemoglobin Conc 0) ent Red Cell 12.9 Distribution % (11.5-14.5) Width Platelet Count 156 10^3/UL (140-4 15) Mean Platelet 11.1 Volume fl (7.4-10.4) Immature 0.600 Granulocytes % % (0.001-0.429 ) Neutrophils % 79.1 % (39.0-77.0) Lymphocytes % 9.3 % (15.0-51.0) Monocytes % 10.9 % (0.0-11.0) Eosinophils % 0.0 % (0.0-7.0) Basophils % 0.1 % (0.0-2.0) Nucleated Red 0.0 Blood Cells % /100WBC (0.0-0 .0) Immature 0.060 Granulocytes # 10^3/ul (0.0-0 .031) Neutrophils # 8.1 10^3/ul (1.6-7 .5) Lymphocytes # 1.0 10^3/ul (0.8-2 .9) Monocytes # 1.1 10^3/ul (0.3-0 .9) Eosinophils # 0.0 10^3/ul (0.0-0 .5) Basophils # 0.0 10^3/ul (0.0-0 .1) Nucleated Red 0.0 Blood Cells # 10^3/ul (0.0-0 .0) Sodium Level 139 mmol/L (135-14 4) Potassium 3.7 Level mmol/L (3.5-5. 1) Chloride Level 104 mmol/L (97-110 ) Carbon Dioxide 27 Level mmol/L (21-31) Anion Gap 8 (5-13) Blood Urea 15 Nitrogen mg/dl (7-20) Creatinine 0.93 mg/dl (0.61-1. 24) Est Glomerular > 60 Filtrat mL/min (>60) Rate mL/min Glucose Level 124 mg/dl (70-220) Calcium Level 7.9 mg/dl (8.4-10. 2) Test 08/09/18 06:55 08/09/18 09:00 Bedside 117 142 Glucose mg/dL (70-220) mg/dL (70-220) FAVIOLA CASTREJON Aug 09, 2018 12:21
--- NOTE | 2018-08-09 15:25 | PN ---
DATE: 08/09/2018 Postop day #1 status post ventral hernia repair with component separation technique and mesh applicat ion. SUBJECTIVE: He states that today he feels better. No more dizziness. No more nausea. Has been out of bed and walk around. Has tolerated diet. Has been passing gas. No bowel movement. No vomiting . OBJECTIVE: GENERAL: Awake, alert. VITAL SIGNS: Temperature maximum 98.4, heart rate 87, respirations 16, blood pressure 113/56, satura tion 95% room air. HEART: Regular. LUNGS: Clear. ABDOMEN: Soft. Bowel sounds are present. Slightly distended. The patient is wearing abdominal bin mateo. EXTREMITIES: Legs have no calf tenderness. Dressing is intact. LABORATORY DATA: WBC 10,200 with 79% segmented, hemoglobin slightly dropped to 9.9, hematocrit 28.9. Chemistry: BUN, creatinine are normal. ASSESSMENT AND PLAN: Stable post-abdominal ventral hernia operation utilizing the component separati on technique with implantation of the mesh. The patient is stable now today. The patient can go elieser e. Instruction for not lifting heavy objects was given to the patient. The patient is to call Dr. Selena mcdaniel and Dr. Barreto's office and make an appointment for followup. The patient is to continue medicatio ns that he used to take for diabetes, high blood pressure and cholesterol. [facility] will be given as a prescription for pain medication to the patient. Dictated By: DARIA FINN MD PS/NTS Conf#: [id number] DID#: [id number] CC: CHIN BARRETO MD; EFRAIN DOMINGUEZ MD;*End*
== END 2018-08-09 13:35 | disposition home or self-care (01) | DRG 355 ==
LOC: SDS 10:00 → UNDOADMIN 14:52 → REC 14:52 → 5EC 16:18 → SDS 16:58
PROVIDERS: ADMIT Surgery; ATTEND Surgery
PROC: 0KXL0Z2 Transfer Left Abdomen Muscle with Skin and Subcutaneous Tissue, Open Approach (ICD-10-PCS; 2018-08-07)
PROC: 0KXK0Z2 Transfer Right Abdomen Muscle with Skin and Subcutaneous Tissue, Open Approach (ICD-10-PCS; 2018-08-07)
PROC: 0WUF0JZ Supplement Abdominal Wall with Synthetic Substitute, Open Approach (ICD-10-PCS; principal; 2018-08-07 14:00)
DX: K42.0 Umbilical hernia with obstruction, without gangrene (principal); E11.9 Type 2 diabetes mellitus without complications; I10 Essential (primary) hypertension; E78.5 Hyperlipidemia, unspecified; Z79.4 Long term (current) use of insulin; Z79.82 Long term (current) use of aspirin; Z86.73 Personal history of transient ischemic attack (TIA), and cerebral infarction without residual deficits
CPT/HCPCS: 80048; 80053; 82962; 85025; J0690; J1170; J1815; J1885; J2250; J2405; J2710; J2765; J2795; J7030

== ENCOUNTER 2018-08-12 13:56 | Inpatient (IN) | payer OTHER ==
[~2018-08-12] VITALS: Ht 170.2 cm; Wt 79.9 kg
[~2018-08-12 13:56] MED LIST changes: +ATOR10TA65 PO; -ATOR40TA68 PO; -CEFAZOLIN 1 GM INJ ONE; +CETI10TA34 PO; -LORA10TA3 PO; -ROCURONIUM 50 MG INJ ONE
[2018-08-12] MEDS ORDERED: SOD CHLORIDE 0.9% 1,000 ML IV STA (16:23)
[2018-08-12] MEDS ORDERED: ONDANSETRON 4 MG INJ IV STA (16:23)
--- NOTE | 2018-08-12 16:23 | ERD ---
ER Documentation Chief Complaint Chief Complaint vomit and diarrhea since from hospital after abd hernia sx HPI 57-year-old male presenting with vomiting and diarrhea. About 1 week ago the patient had a hernia repair done and was admitted to the hospital for 3 days, discharged 3 days ago. He states that upon discharge, he was feeling nauseated and sick to his stomach. However he was not discharged with any antiemetics, only pain medications. He states he has not been taking his pain medications at home as he has not had much abdominal pain. He has only been feeling nauseated with nonbloody and nonbilious vomiting. He has had some loose watery stools as well. He denies any fevers or chills. No abdominal pain. No hematochezia or melena. ROS All systems reviewed and are negative except as per history of present illness. Medications Home Meds Reported Medications Atorvastatin Calcium (Atorvastatin Calcium) 10 Mg Tablet, 10 MG PO QHS, #30 TAB 08/07/18 Cetirizine Hcl* (Cetirizine Hcl*) 10 Mg Tab.chew, 10 MG PO DAILY, #30 TAB 08/07/18 Amlodipine Besylate* (Amlodipine Besylate*) 5 Mg Tablet, 5 MG PO QPM, #30 TAB 09/23/17 Fenofibrate Nanocrystallized* (Fenofibrate*) 145 Mg Tablet, 145 MG PO DAILY, TAB 09/23/17 Metformin* (Glucophage*) 850 Mg Tablet, 850 MG PO WITH MEALS, #90 TAB 09/23/17 Hydralazine Hcl* (Hydralazine Hcl*) 50 Mg Tab, 50 MG PO DAILY, #60 TAB 09/23/17 Benazepril Hcl* (Benazepril Hcl*) 40 Mg Tablet, 40 MG PO DAILY, #30 TAB 09/23/17 Hydrochlorothiazide* (Hydrochlorothiazide*) 25 Mg Tab, 25 MG PO DAILY, #60 TAB 04/23/16 Discontinued Reported Medications Cetirizine Hcl* (Cetirizine Hcl*) 10 Mg Tablet, 10 MG PO DAILY 08/07/18 Loratadine* (Loratadine*) 10 Mg Tablet, 10 MG PO DAILY, #30 TAB 09/23/17 Discontinued Scripts Aspirin* (Aspirin* EC) 325 Mg Tab, 325 MG PO DAILY, #90 TAB Prov:CHEPE SANDERSON MD 09/24/17 Atorvastatin* (Atorvastatin*) 40 Mg Tablet, 40 MG PO QHS, #90 TAB Prov:CHEPE SANDERSON MD 09/24/17 Allergies Allergies: Coded Allergies: No Known Allergy (Unverified , 08/12/18) PMhx/Soc History of Surgery: No Anesthesia Reaction: No Hx Neurological Disorder: No Hx Respiratory Disorders: No Hx Cardiac Disorders: Yes (HTN,HLP) Hx Psychiatric Problems: No Hx Miscellaneous Medical Probl: Yes (DM) Hx Alcohol Use: No Hx Substance Use: No Hx Tobacco Use: No Smoking Status: Never smoker FmHx Family History: No diabetes Physical Exam Vitals Vital Signs Date Temp Pulse Resp B/P (MAP) Pulse Ox O2 O2 Flow FiO2 Time Delivery Rate 08/12/18 98.8 79 17 146/79 94 Room Air 19:30 (101) 08/12/18 98.2 79 20 170/72 98 14:00 (104) Physical Exam Const: Mild distress secondary to nausea. Sickly appearing but nontoxic. Head: Atraumatic Eyes: Pale conjunctiva ENT: Dry mucous membranes. Normal External Ears, Nose and Mouth. Neck: Full range of motion. No meningismus. Resp: Clear to auscultation bilaterally Cardio: Regular rate and rhythm, no murmurs Abd: Surgical incision with dressings in place, clean dry and intact. Abdominal wall bruising noted, expected postop. Otherwise abdomen soft, appropriately tender, non distended. Normal bowel sounds Skin: Pale skin. Abdominal wall postoperative bruising. Otherwise no petechiae or rashes Back: No midline or flank tenderness Ext: No cyanosis, or edema Neur: Awake and alert Psych: Normal Mood and Affect Result Diagram: 08/12/18 1632 08/12/18 1632 Results 24 hrs Laboratory Tests Test 08/12/18 16:32 08/12/18 18:15 White Blood Count 9.7 10^3/ul Red Blood Count 1.97 10^6/ul Hemoglobin 6.3 g/dl Hematocrit 19.2 % Mean Corpuscular Volume 97.5 fl Mean Corpuscular Hemoglobin 32.0 pg Mean Corpuscular Hemoglobin Concent 32.8 g/dl Red Cell Distribution Width 13.2 % Platelet Count 235 10^3/UL Mean Platelet Volume 10.7 fl Immature Granulocytes % 1.000 % Neutrophils % 75.8 % Lymphocytes % 12.2 % Monocytes % 10.9 % Eosinophils % 0.0 % Basophils % 0.1 % Nucleated Red Blood Cells % 1.0 /100WBC Immature Granulocytes # 0.100 10^3/ul Neutrophils # 7.3 10^3/ul Lymphocytes # 1.2 10^3/ul Monocytes # 1.1 10^3/ul Eosinophils # 0.0 10^3/ul Basophils # 0.0 10^3/ul Nucleated Red Blood Cells # 0.1 10^3/ul Pathologist Review (Hematology) YES Sodium Level 144 mmol/L Potassium Level 3.9 mmol/L Chloride Level 94 mmol/L Carbon Dioxide Level 33 mmol/L Anion Gap 17 Blood Urea Nitrogen 31 mg/dl Creatinine 0.99 mg/dl Est Glomerular Filtrat Rate mL/min > 60 mL/min Glucose Level 142 mg/dl Calcium Level 8.7 mg/dl Total Bilirubin 1.5 mg/dl Direct Bilirubin 0.00 mg/dl Indirect Bilirubin 1.5 mg/dl Aspartate Amino Transf (AST/SGOT) 30 IU/L Alanine Aminotransferase (ALT/SGPT) 22 IU/L Alkaline Phosphatase 55 IU/L Total Protein 7.0 g/dl Albumin 4.0 g/dl Globulin 3.00 g/dl Albumin/Globulin Ratio 1.33 Lipase 456 U/L Urine Color YELLOW Urine Clarity CLEAR Urine pH 8.0 Urine Specific [place] 1.016 Urine Ketones TRACE mg/dL Urine Nitrite NEGATIVE mg/dL Urine Bilirubin NEGATIVE mg/dL Urine Urobilinogen 1+ mg/dL Urine Leukocyte Esterase NEGATIVE Jarek/ul Urine Microscopic RBC 1 /HPF Urine Microscopic WBC 1 /HPF Urine Hemoglobin 2+ mg/dL Urine Glucose 1+ mg/dL Urine Total Protein NEGATIVE mg/dl Current Medications Medications Dose Sig/[place] Start Time Status Last (Trade) Ordered Route PRN Stop Time Admin Dose Reason Admin Sodium 1,000 ml @ Q1H STAT 08/12/18 DC 08/12/18 Chloride 1,000 mls/hr IV 16:23 16:39 08/12/18 17:22 Ondansetron 4 mg ONCE STAT 08/12/18 DC 08/12/18 HCl (Zofran IV 16:23 16:39 Inj) 08/12/18 16:26 Sodium 0 ml @ 0 Q0M ONCE 08/12/18 DC 08/12/18 Chloride mls/hr IV 16:49 22:30 08/12/18 16:51 Famotidine 20 mg ONCE ONCE 08/12/18 DC 08/12/18 (Pepcid) PO 19:00 18:38 08/12/18 19:01 Procedures/MDM EMERGENT LABS AND DIAGNOSTIC STUDIES: Lab Results above were reviewed and interpreted by me. CBC: Significant anemia with hemoglobin 6.3. No evidence of infection. CMP: Elevated BUN with normal creatinine, likely secondary to prerenal azotemia from dehydration. No evidence of significant electrolyte abnormality, renal failure, hypoglycemia, liver failure, or biliary obstruction Lipase: no evidence of pancreatitis UA: no evidence of infection Initial Nursing notes reviewed. Previous Medical Records requested via the Electronic Health Record. EMERGENCY DEPARTMENT COURSE / MEDICAL DECISION MAKING: patient is presenting with generalized weakness and intractable nausea and vomiting. Vitals are stable and he is afebrile. I do not suspect acute surgical abdomen or postoperative infection. I did consider small bowel obstruction, but this is very unlikely this soon after surgery. Ileus was also considered but the patient is having diarrhea, so this is also less likely but still possible. Labs showed evidence of dehydration with prerenal azotemia. The patient was given IV fluids and antiemetics with mild improvement of his symptoms. He was noted to be anemic, unclear in etiology as he has no signs or symptoms of a GI bleed. Upon reevaluation the patient does not feel much better. I did order 1 unit of PRBCs given his hemoglobin is less than 7. I do not feel the patient is stable for discharge and will require admission for further symptom control, hydration, and stabilization. Critical Care Management of Hemorrhage and Symptomatic Anemia: Time: 40 Minutes Treatments/Evaluations: Close monitoring and management of bleeding sources while maintaining tight balance of fluid. With judicious assessment of anemia, coagulopathy and thrombocytopenia, while considering correction with blood products and medical therapy. Accepting Care Team: Current data and ongoing care discussed. Time: Time of admission Primary Provider: Dr. Katarzyna Rizzo Consulting: None Outstanding Data: none Departure Diagnosis: Primary Impression: Nausea, vomiting, and diarrhea Additional Impressions: Symptomatic anemia Prerenal azotemia Condition: Fair CLAYTON GARAY MD Aug 12, 2018 16:23
[2018-08-12] MEDS ORDERED: SOD CHLORIDE 0.9% 0 ML IV ONE (16:49)
[2018-08-12] MEDS ORDERED: FAMOTIDINE 20 MG TAB PO ONE (19:00)
[2018-08-12] MEDS ORDERED: ONDANSETRON 4 MG INJ IV PRN (20:00)
[2018-08-12] MEDS ORDERED: ACETAMINOPHEN 325 MG TAB PO PRN ×2 (20:00→20:30)
[2018-08-12] MEDS ORDERED: NACL 0.9% 3 ML SYG IV SCH (20:30)
[2018-08-12] MEDS ORDERED: morphine 2 MG INJ IV PRN (20:30)
[2018-08-12] MEDS: FAMOTIDINE 20 MG INJ IV SCH (21:52)
[2018-08-12] MEDS: SOD CHLORIDE 0.9% 1,000 ML IV SCH (22:44)
[2018-08-12 23:05] VITALS: BP 160/73; PULSE 65; RESP 19
[2018-08-12 23:20] VITALS: Ht 170.2 cm; Wt 79.9 kg
[2018-08-13] VITALS (14 sets, daily range): BP systolic 140–169; BP diastolic 63–79; PULSE 65–109; RESP 16–20
[2018-08-13] MEDS: SOD CHLORIDE 0.9% 1,000 ML IV SCH ×3 (04:22→20:54)
[2018-08-13] MEDS ORDERED: GLUCAGON 1 MG INJ IM PRN (07:00)
[2018-08-13] MEDS ORDERED: DEXTROSE 50% 50 ML SYRINGE IV PRN ×2 (07:00)
[2018-08-13] MEDS ORDERED: GLUCOSE GEL 15 GRAM TUBE BUCCAL PRN (07:00)
[2018-08-13] MEDS ORDERED: GLUCOSE GEL 15 GRAM TUBE PO PRN ×2 (07:00)
[2018-08-13] MEDS: INSULIN ASPART [NOVOLOG] 3 ML PEN SC SCH ×4 (08:00→21:00)
[2018-08-13] MEDS: metFORMIN 850 MG TAB PO SCH ×3 (08:16→17:40)
[2018-08-13] MEDS: ACCU-CHEK XX SCH ×4 (08:29→21:00)
[2018-08-13] MEDS: FAMOTIDINE 20 MG INJ IV SCH ×2 (09:20→20:55)
[2018-08-13] MEDS: FENOFIBRATE 145 MG TAB PO SCH (09:20)
[2018-08-13] MEDS: LORATADINE 10 MG TAB PO SCH (09:20)
[2018-08-13] MEDS: HYDROCHLOROTHIAZIDE 25 MG TAB PO SCH (09:21)
[2018-08-13] MEDS: BENAZEPRIL 40 MG TAB PO SCH (09:21)
[2018-08-13] MEDS: ENOXAPARIN 30 MG/0.3 ML SYG SC SCH (09:26)
--- NOTE | 2018-08-13 13:20 | HP ---
Date/Time of Note Date/Time of Note DATE: 08/13/18 TIME: 13:18 Assessment/Plan VTE Prophylaxis Risk score (from Ns)>0 risk: 2 [place] [facility] [place] Pharmacological [place]: LMWH Lines/Catheters IV Catheter Type (from [facility]): Peripheral IV Assessment/Plan Hospital Course 1) dehydration - IV fluids - encourage PO intake 2) anemia - transfusion - follow H/H 3) diabetes - monitor blood sugar Result Diagram: 08/13/18 0553 08/13/18 0553 Results 24hrs Laboratory Tests Test 08/12/18 16:32 08/12/18 18:15 08/13/18 05:53 08/13/18 06:52 White Blood Count 9.7 8.1 Red Blood Count 1.97 #L 2.15 L Hemoglobin 6.3 #*L 6.7 *L Hematocrit 19.2 #L 20.8 L Mean Corpuscular 97.5 96.7 Volume Mean Corpuscular 32.0 31.2 Hemoglobin Mean Corpuscular 32.8 32.2 Hemoglobin Concen t Red Cell 13.2 15.3 H Distribution Width Platelet Count 235 # 191 Mean Platelet 10.7 H 10.2 Volume Immature 1.000 H 1.600 H Granulocytes % Neutrophils % 75.8 70.6 Lymphocytes % 12.2 L 16.7 Monocytes % 10.9 10.9 Eosinophils % 0.0 0.1 Basophils % 0.1 0.1 Nucleated Red 1.0 H 1.4 H Blood Cells % Immature 0.100 H 0.130 H Granulocytes # Neutrophils # 7.3 5.7 Lymphocytes # 1.2 1.4 Monocytes # 1.1 H 0.9 Eosinophils # 0.0 0.0 Basophils # 0.0 0.0 Nucleated Red 0.1 H 0.1 H Blood Cells # Pathologist YES YES Review (Hematolog y) Sodium Level 144 142 Potassium Level 3.9 4.5 Chloride Level 94 L 102 Carbon Dioxide 33 H 29 Level Anion Gap 17 H 11 Blood Urea 31 H 23 H Nitrogen Creatinine 0.99 0.90 Est Glomerular > 60 > 60 Filtrat Rate mL/min Glucose Level 142 103 Calcium Level 8.7 7.9 L Total Bilirubin 1.5 H 1.5 H Direct Bilirubin 0.00 0.00 Indirect 1.5 H 1.5 H Bilirubin Aspartate Amino 30 24 Transf (AST/SGOT) Alanine 22 22 Aminotransferase (ALT/SGPT) Alkaline 55 45 Phosphatase Total Protein 7.0 5.7 #L Albumin 4.0 3.2 L Globulin 3.00 2.50 Albumin/Globulin 1.33 1.28 Ratio Lipase 456 H Urine Color YELLOW Urine Clarity CLEAR Urine pH 8.0 Urine Specific 1.016 Fence Urine Ketones TRACE A Urine Nitrite NEGATIVE Urine Bilirubin NEGATIVE Urine 1+ H Urobilinogen Urine Leukocyte NEGATIVE Esterase Urine Microscopic 1 RBC Urine Microscopic 1 WBC Urine Hemoglobin 2+ H Urine Glucose 1+ H Urine Total NEGATIVE Protein Segmented 74 Neutrophils % (Manual) Band Neutrophils 3 % (Manual) Lymphocytes % 14 L (Manual) Monocytes % 9 (Manual) Neutrophils # 6.0 (Manual) Band Neutrophils 0.2 # Lymphocytes 1.1 (Manual) Monocytes # 0.7 (Manual) White Cell @See below Morphology Comment Platelet Estimate NORMAL Platelet @See below Morphology Comment Polychromasia 2+ Hypochromasia 1+ Anisocytosis 1+ Microcytosis 1+ Macrocytosis 1+ Red Cell @See below Morphology Comment Hemoglobin A1c 5.8 Lab Scanned BLOOD TRANSFUSIO Report N Test 08/13/18 08:15 08/13/18 11:58 Bedside Glucose 100 113 HPI/ROS Admit Date/Time Admit Date/Time Aug 12, 2018 at 19:54 Hx of Present Illness Patient with hypertension, hyperlipidemia, diabetes who recently had hernia repair comes back to the ER complaining of nausea and vomiting. Patient was found to be anemic and dehydrated and so he is admitted for further evaluation and treatment with intravenous fluids and blood transfusion. PMH/Family/Social Past Medical History Medical History: diabetes, high cholesterol, hypertension Medications Current Medications Ondansetron HCl (Zofran Inj) 4 mg BRIDGE ORDER PRN IV NAUSEA/VOMITING Last administered on 08/12/18at 21:53; Admin Dose 4 MG; Start 08/12/18 at 20:00; Stop 08/13/18 at 19:59 Acetaminophen (Tylenol Tab) 650 mg ER BRIDGE PRN PO .MILD PAIN 1-3 OR TEMP; Start 08/12/18 at 20:00; Stop 08/13/18 at 19:59 Sodium Chloride 1,000 ml @ 125 mls/hr Q8H IV Last administered on 08/12/18at 22:44; Admin Dose 125 MLS/HR; Start 08/12/18 at 20:22 IV Flush (NS 3 ml) 3 ml PER PROTOCOL IV ; Start 08/12/18 at 20:30 Ondansetron HCl (Zofran Inj) 4 mg Q6H PRN IV NAUSEA/VOMITING; Start 08/12/18 at 20:30 Acetaminophen (Tylenol Tab) 650 mg Q6H PRN PO .PAIN 1-3 OR TEMP; Start 08/12/18 at 20:30 Morphine Sulfate (morphine) 2 mg Q4H PRN IV .SEVERE PAIN 7-10; Start 08/12/18 at 20:30 Famotidine (Pepcid Iv) 20 mg Q12 IV Last administered on 08/13/18 09:20; Admin Dose 20 MG; Start 08/12/18 at 21:00 Enoxaparin Sodium (Lovenox) 30 mg DAILY SC Last administered on 08/13/18 09:26; Admin Dose 30 MG; Start 08/13/18 at 09:00 Miscellaneous Information Patients own medicat... BID@10,16 XX ; Start 08/13/18 at 10:00 Amlodipine Besylate (Norvasc) 5 mg QPM PO ; Start 08/13/18 at 21:00 Atorvastatin Calcium (Lipitor) 10 mg QHS PO ; Start 08/13/18 at 21:00 Benazepril HCl (Lotensin) 40 mg DAILY PO Last administered on 08/13/18 09:21; Admin Dose 40 MG; Start 08/13/18 at 09:00 Fenofibrate (Tricor) 145 mg DAILY PO Last administered on 08/13/18 09:20; Admin Dose 145 MG; Start 08/13/18 at 09:00 Hydralazine HCl (Apresoline) 50 mg DAILY PO Last administered on 08/13/18 09:22; Admin Dose 50 MG; Start 08/13/18 at 09:00 Hydrochlorothiazide (Hydrochlorothiazide) 25 mg DAILY PO Last administered on 08/13/18 09:21; Admin Dose 25 MG; Start 08/13/18 at 09:00 Metformin HCl (Glucophage) 850 mg WITH MEALS PO Last administered on 08/13/18at 11:57; Admin Dose 850 MG; Start 08/13/18 at 07:35 Loratadine (Claritin) 10 mg DAILY PO Last administered on 3/24/19at 09:20; Admin Dose 10 MG; Start 08/13/18 at 09:00 Diagnostic Test (Pha) (Accu-Chek) 1 ea AC MEALS AND BEDTIME XX Last administered on 08/13/18at 11:57; Admin Dose 1 EA; Start 08/13/18 at 07:30 Insulin Aspart (Novolog Insulin Pen) NOVOLOG *MILD* ALGORITHM WITH MEALS BEDTIME SC ; Start 08/13/18 at 08:00 Diagnostic Test (Pha) (Accu-Chek) 1 ea 02 XX ; Start 08/14/18 at 02:00 Miscellaneous Information 1 ea NOTE XX ; Start 08/13/18 at 07:00 Glucose (Glutose) 15 gm Q15M PRN PO DECREASED GLUCOSE; Start 08/13/18 at 07:00 Glucose (Glutose) 22.5 gm Q15M PRN PO DECREASED GLUCOSE; Start 08/13/18 at 07:00 Dextrose (D50w Syringe) 25 ml Q15M PRN IV DECREASED GLUCOSE; Start 08/13/18 at 07:00 Dextrose (D50w Syringe) 50 ml Q15M PRN IV DECREASED GLUCOSE; Start 08/13/18 at 07:00 Glucagon (Glucagen) 1 mg Q15M PRN IM DECREASED GLUCOSE; Start 08/13/18 at 07:00 Glucose (Glutose) 15 gm Q15M PRN BUCCAL DECREASED GLUCOSE; Start 08/13/18 at 07:00 Coded Allergies: No Known Allergy (Unverified , 08/12/18) Past Surgical History Past Surgical Hx: no surgical history Family History Significant Family History: heart disease, diabetes, other Social History Smoking Status: Never smoker Exam/Review of Systems Vital Signs Vitals Vital Signs Date Temp Pulse Resp B/P (MAP) Pulse Ox O2 O2 Flow FiO2 Time Delivery Rate 08/13/18 98.1 65 20 165/77 94 08:08 (106) 08/12/18 Room Air 22:30 Intake and Output 08/12/18 08/12/18 08/13/18 1515:00 23:00 07:00 IntakeIntake Total 1350 ml 500 ml OutputOutput Total 600 ml BalanceBalance 750 ml 500 ml Exam Constitutional: well developed Head: normocephalic, atraumatic Neck: supple Respiratory: clear to auscultation Cardiovascular: regular rate and rhythm Gastrointestinal: soft, non-tender Extremities: normal pulses TY MORALES Aug 13, 2018 13:20
[2018-08-13] MEDS: AMLODIPINE 5 MG TAB PO SCH (20:54)
[2018-08-13] MEDS: ATORVASTATIN 10 MG TAB PO SCH (20:54)
[2018-08-14 02:00] VITALS: BP 158/77; PULSE 96; RESP 17
[2018-08-14] MEDS: ACCU-CHEK XX SCH ×5 (02:00→21:00)
[2018-08-14] MEDS: SOD CHLORIDE 0.9% 1,000 ML IV SCH ×3 (04:56→22:17)
[2018-08-14] MEDS: INSULIN ASPART [NOVOLOG] 3 ML PEN SC SCH ×4 (08:00→20:47)
[2018-08-14 08:10] VITALS: BP 167/76; PULSE 62; RESP 18
[2018-08-14] MEDS: BENAZEPRIL 40 MG TAB PO SCH (08:45)
[2018-08-14] MEDS: FENOFIBRATE 145 MG TAB PO SCH (08:46)
[2018-08-14] MEDS: HYDROCHLOROTHIAZIDE 25 MG TAB PO SCH (08:46)
[2018-08-14] MEDS: metFORMIN 850 MG TAB PO SCH ×3 (08:47→17:44)
[2018-08-14] MEDS: FAMOTIDINE 20 MG INJ IV SCH (08:48)
[2018-08-14] MEDS: LORATADINE 10 MG TAB PO SCH (08:48)
[2018-08-14] MEDS: ENOXAPARIN 30 MG/0.3 ML SYG SC SCH (08:50)
[2018-08-14 15:11] VITALS: BP 164/77; PULSE 74; RESP 20
--- NOTE | 2018-08-14 18:18 | PN ---
Date/Time of Note Date/Time of Note DATE: 08/14/18 TIME: 18:11 Assessment/Plan VTE Prophylaxis Risk score (from Ns)>0 risk: 3 SCD applied (from Ns): Yes Pharmacological prophylaxis: NA/contraindicated Pharm contraindication: surgical contra Lines/Catheters IV C[facility]ter Type (from [facility]): Peripheral IV Assessment/Plan Hospital Course Patient complains of diarrhea, feel nauseated, continue Zofran as needed for nausea IV fluids. I called Dr. Fields regarding this pt. Assessment/Plan -Anemia with hemoglobin of 6.8 on admission, requiring blood transfusion, continue to monitor H&H. -Diarrhea, stool for C. difficile is negative, continue IV fluids. -Nausea and abdominal pain on admission, continue Zofran as needed for nausea. -Status post hernia repair by Dr. Fields on 08/07/2018 -Diabetes mellitus -Hypertension -Hyperlipidemia Further recommendations based on clinical course. Plan of care discussed with Dr. Carrizales. Result Diagram: 08/14/18 0557 08/14/18 0557 Results 24hrs Laboratory Tests Test 08/13/18 21:03 08/14/18 05:57 08/14/18 08:07 08/14/18 12:30 Bedside Glucose 102 92 106 White Blood Count 8.7 Red Blood Count 3.05 #L Hemoglobin 9.4 #L Hematocrit 27.8 #L Mean Corpuscular 91.1 Volume Mean Corpuscular 30.8 Hemoglobin Mean Corpuscular 33.8 Hemoglobin Concent Red Cell 15.3 H Distribution Width Platelet Count 201 Mean Platelet Volume 10.0 Immature 1.000 H Granulocytes % Neutrophils % 72.6 Lymphocytes % 15.8 Monocytes % 9.9 Eosinophils % 0.5 Basophils % 0.2 Nucleated Red Blood 0.9 H Cells % Immature 0.090 H Granulocytes # Neutrophils # 6.3 Lymphocytes # 1.4 Monocytes # 0.9 Eosinophils # 0.0 Basophils # 0.0 Nucleated Red Blood 0.1 H Cells # Sodium Level 135 Potassium Level 3.7 Chloride Level 101 Carbon Dioxide Level 28 Anion Gap 6 Blood Urea Nitrogen 17 Creatinine 0.85 Est Glomerular > 60 Filtrat Rate mL/min Glucose Level 91 Calcium Level 8.0 L Test 08/14/18 17:14 Bedside Glucose 100 Exam/Review of Systems Exam Vitals Vital Signs Date Temp Pulse Resp B/P (MAP) Pulse Ox O2 O2 Flow FiO2 Time Delivery Rate 08/14/18 98.2 74 20 164/77 96 Room Air 15:11 (106) Intake and Output 08/13/18 08/13/18 08/14/18 1515:00 23:00 07:00 IntakeIntake Total 1240 ml 1900 ml 1240 ml BalanceBalance 1240 ml 1900 ml 1240 ml Constitutional: alert, oriented Head: normocephalic Neck: supple Respiratory: clear to auscultation Cardiovascular: nl pulses Gastrointestinal: soft, tender, other (Midline abdominal incision) Extremities: normal pulses Neurological: nl mental status Results Results 24hrs Laboratory Tests Test 08/13/18 21:03 08/14/18 05:57 08/14/18 08:07 08/14/18 12:30 Bedside Glucose 102 92 106 White Blood Count 8.7 Red Blood Count 3.05 #L Hemoglobin 9.4 #L Hematocrit 27.8 #L Mean Corpuscular 91.1 Volume Mean Corpuscular 30.8 Hemoglobin Mean Corpuscular 33.8 Hemoglobin Concent Red Cell 15.3 H Distribution Width Platelet Count 201 Mean Platelet Volume 10.0 Immature 1.000 H Granulocytes % Neutrophils % 72.6 Lymphocytes % 15.8 Monocytes % 9.9 Eosinophils % 0.5 Basophils % 0.2 Nucleated Red Blood 0.9 H Cells % Immature 0.090 H Granulocytes # Neutrophils # 6.3 Lymphocytes # 1.4 Monocytes # 0.9 Eosinophils # 0.0 Basophils # 0.0 Nucleated Red Blood 0.1 H Cells # Sodium Level 135 Potassium Level 3.7 Chloride Level 101 Carbon Dioxide Level 28 Anion Gap 6 Blood Urea Nitrogen 17 Creatinine 0.85 Est Glomerular > 60 Filtrat Rate mL/min Glucose Level 91 Calcium Level 8.0 L Test 08/14/18 17:14 Bedside Glucose 100 Medications Medication Current Medications Sodium Chloride 1,000 ml @ 125 mls/hr Q8H IV Last administered on 08/14/18at 12:56; Admin Dose 125 MLS/HR; Start 08/12/18 at 20:22 IV Flush (NS 3 ml) 3 ml PER PROTOCOL IV ; Start 08/12/18 at 20:30 Ondansetron HCl (Zofran Inj) 4 mg Q6H PRN IV NAUSEA/VOMITING; Start 08/12/18 at 20:30 Acetaminophen (Tylenol Tab) 650 mg Q6H PRN PO .PAIN 1-3 OR TEMP; Start 08/12/18 at 20:30 Morphine Sulfate (morphine) 2 mg Q4H PRN IV .SEVERE PAIN 7-10; Start 08/12/18 at 20:30 Enoxaparin Sodium (Lovenox) 30 mg DAILY SC Last administered on 08/14/18 08:50; Admin Dose 30 MG; Start 08/13/18 at 09:00 Miscellaneous Information Patients own medicat... BID@10,16 XX ; Start 08/13/18 at 10:00 Amlodipine Besylate (Norvasc) 5 mg QPM PO Last administered on 08/13/18 20:54; Admin Dose 5 MG; Start 08/13/18 at 21:00 Atorvastatin Calcium (Lipitor) 10 mg QHS PO Last administered on 08/13/18 20:54; Admin Dose 10 MG; Start 08/13/18 at 21:00 Benazepril HCl (Lotensin) 40 mg DAILY PO Last administered on 08/14/18 08:45; Admin Dose 40 MG; Start 08/13/18 at 09:00 Fenofibrate (Tricor) 145 mg DAILY PO Last administered on 08/14/18 08:46; Admin Dose 145 MG; Start 08/13/18 at 09:00 Hydralazine HCl (Apresoline) 50 mg DAILY PO Last administered on 08/14/18 08:47; Admin Dose 50 MG; Start 08/13/18 at 09:00 Hydrochlorothiazide (Hydrochlorothiazide) 25 mg DAILY PO Last administered on 08/14/18 08:46; Admin Dose 25 MG; Start 08/13/18 at 09:00 Metformin HCl (Glucophage) 850 mg WITH MEALS PO Last administered on 08/14/18 17:44; Admin Dose 850 MG; Start 08/13/18 at 07:35 Loratadine (Claritin) 10 mg DAILY PO Last administered on 08/14/18 08:48; Admin Dose 10 MG; Start 08/13/18 at 09:00 Diagnostic Test (Pha) (Accu-Chek) 1 ea AC MEALS AND BEDTIME XX Last administered on 08/13/18 11:57; Admin Dose 1 EA; Start 3/24/19 at 07:30 Insulin Aspart (Novolog Insulin Pen) NOVOLOG *MILD* ALGORITHM WITH MEALS BEDTIME SC ; Start 08/13/18 at 08:00 Diagnostic Test (Pha) (Accu-Chek) 1 ea 02 XX ; Start 08/14/18 at 02:00 Miscellaneous Information 1 ea NOTE XX ; Start 08/13/18 at 07:00 Glucose (Glutose) 15 gm Q15M PRN PO DECREASED GLUCOSE; Start 08/13/18 at 07:00 Glucose (Glutose) 22.5 gm Q15M PRN PO DECREASED GLUCOSE; Start 08/13/18 at 07:00 Dextrose (D50w Syringe) 25 ml Q15M PRN IV DECREASED GLUCOSE; Start 08/13/18 at 07:00 Dextrose (D50w Syringe) 50 ml Q15M PRN IV DECREASED GLUCOSE; Start 08/13/18 at 07:00 Glucagon (Glucagen) 1 mg Q15M PRN IM DECREASED GLUCOSE; Start 08/13/18 at 07:00 Glucose (Glutose) 15 gm Q15M PRN BUCCAL DECREASED GLUCOSE; Start 08/13/18 at 07:00 Famotidine (Pepcid) 20 mg BID PO ; Start 08/14/18 at 21:00 NILAM WICK Aug 14, 2018 18:17
[2018-08-14 20:28] VITALS: BP 153/80; PULSE 71; RESP 18
[2018-08-14] MEDS: ONDANSETRON 4 MG INJ IV PRN (20:33)
[2018-08-14] MEDS: FAMOTIDINE 20 MG TAB PO SCH (20:33)
[2018-08-14] MEDS: ATORVASTATIN 10 MG TAB PO SCH (20:34)
[2018-08-14] MEDS: AMLODIPINE 5 MG TAB PO SCH (20:34)
[2018-08-15] MEDS: ACCU-CHEK XX SCH ×5 (02:00→21:00)
[2018-08-15 02:59] VITALS: BP 145/74; PULSE 68; RESP 20
[2018-08-15] MEDS: SOD CHLORIDE 0.9% 1,000 ML IV SCH ×4 (04:22→21:18)
[2018-08-15 07:58] VITALS: BP 96/58; PULSE 78; RESP 16
[2018-08-15] MEDS: INSULIN ASPART [NOVOLOG] 3 ML PEN SC SCH ×4 (08:00→21:00)
[2018-08-15 08:17] VITALS: BP 171/82; PULSE 66; RESP 18
[2018-08-15] MEDS: BENAZEPRIL 40 MG TAB PO SCH (08:36)
[2018-08-15] MEDS: FENOFIBRATE 145 MG TAB PO SCH (08:36)
[2018-08-15] MEDS: LORATADINE 10 MG TAB PO SCH (08:36)
[2018-08-15] MEDS: HYDROCHLOROTHIAZIDE 25 MG TAB PO SCH (08:36)
[2018-08-15] MEDS: metFORMIN 850 MG TAB PO SCH ×3 (08:37→17:38)
[2018-08-15] MEDS: FAMOTIDINE 20 MG TAB PO SCH (08:37)
[2018-08-15] MEDS: ENOXAPARIN 30 MG/0.3 ML SYG SC SCH (08:39)
--- NOTE | 2018-08-15 13:25 | CONS ---
DATE OF ADMISSION: 08/15/2018 DATE OF CONSULTATION: 08/15/2018 INDICATION: This is a 57-year-old male who is well known to me. He recently had an open component s eparation with mesh repair for complex abdominal wall defect and hernia. [place] and unexpectedly, he had some episode of nausea and vomiting and weakness. He denies any tra valeriy. He presented to the ER and was found to have nausea and vomiting and acute anemia. He was ye sfused and currently is feeling better and stabilized. General surgery was called and followup in fo r evaluation. PAST MEDICAL HISTORY: Hypertension, hyperlipidemia, diabetes. PAST SURGICAL HISTORY: Described as above, recent component separation. LABORATORY DATA: White blood cell count is 7.5, hemoglobin is 9.4, hematocrit 27.7, platelets 232. Chemistries on 08/15/2018 are normal except for low calcium of 8.1. PHYSICAL EXAMINATION: VITAL SIGNS: Temperature 98.5, pulse is 86, respiratory rate is 18, blood pressure is 140s to 170s o reji 70s to 80s. ABDOMEN: Shows diffuse ecchymosis around the flank of the abdomen and to the gluteal area. ASSESSMENT AND PLAN: This is a 57-year-old male with recent component separation with ecchymosis and suspect hematoma with acute blood loss anemia. He was transfused and stabilized. His hemoglobin kaur s been stable for the past 48 hours. However considering his recent discharge and readmission, we wi ll continue to follow for another day or 2 to make sure that he has no other nausea or emesis until d ischarge. We will continue to follow. Additionally, we will order for a PPI medication for gastroin testinal prophylaxis. Dictated By: CHIN BARRETO MD SB/KIRA Conf#: [id number] DID#: [id number] CC: EFRAIN DOMINGUEZ MD;*End*
[2018-08-15 15:01] VITALS: BP 151/75; PULSE 78; RESP 18
--- NOTE | 2018-08-15 17:12 | PN ---
Date/Time of Note Date/Time of Note DATE: 08/15/18 TIME: 17:07 Assessment/Plan VTE Prophylaxis Risk score (from Ns)>0 risk: 3 SCD applied (from Ns): Yes Pharmacological prophylaxis: NA/contraindicated Pharm contraindication: bleeding Lines/Catheters IV C[facility]ter Type (from [facility]): Peripheral IV Assessment/Plan Hospital Course Patient complains of diarrhea significant pain, bruising is noted in the lower abdomen was extension to the left flank, hemoglobin is staying stable continue IV fluids. Patient denies any nausea, able to tolerate diet. Assessment/Plan -Anemia with hemoglobin of 6.8 on admission due to acute blood loss, requiring blood transfusion, continue to monitor H&H. Continue to monitor. -Diarrhea, stool for C. difficile is negative, continue IV fluids. -Nausea and abdominal pain on admission, continue Zofran as needed for nausea. -Status post hernia repair by Dr. Fields on 08/07/2018. is following general surgery consultation. -Diabetes mellitus -Hypertension -Hyperlipidemia Further recommendations based on clinical course. Plan of care discussed with Dr. Carrizales. Result Diagram: 08/15/18 0700 08/15/18 0700 Results 24hrs Laboratory Tests Test 08/14/18 17:14 08/14/18 20:42 08/14/18 23:00 08/15/18 07:00 Bedside Glucose 100 113 Stool Occult Blood NEGATIVE White Blood Count 7.5 Red Blood Count 3.02 L Hemoglobin 9.4 L Hematocrit 27.7 L Mean Corpuscular 91.7 Volume Mean Corpuscular 31.1 Hemoglobin Mean Corpuscular 33.9 Hemoglobin Concent Red Cell 14.9 H Distribution Width Platelet Count 232 Mean Platelet Volume 9.9 Immature 0.700 H Granulocytes % Neutrophils % 72.2 Lymphocytes % 14.2 L Monocytes % 11.9 H Eosinophils % 0.7 Basophils % 0.3 Nucleated Red Blood 0.0 Cells % Immature 0.050 H Granulocytes # Neutrophils # 5.5 Lymphocytes # 1.1 Monocytes # 0.9 Eosinophils # 0.1 Basophils # 0.0 Nucleated Red Blood 0.0 Cells # Sodium Level 137 Potassium Level 3.6 Chloride Level 103 Carbon Dioxide Level 26 Anion Gap 8 Blood Urea Nitrogen 13 Creatinine 0.79 Est Glomerular > 60 Filtrat Rate mL/min Glucose Level 91 Calcium Level 8.1 L Test 08/15/18 07:57 08/15/18 12:00 08/15/18 17:01 Bedside Glucose 95 122 99 Exam/Review of Systems Exam Vitals Vital Signs Date Temp Pulse Resp B/P (MAP) Pulse Ox O2 O2 Flow FiO2 Time Delivery Rate 08/15/18 98.0 78 18 151/75 96 Room Air 15:01 (100) Intake and Output 08/14/18 08/14/18 08/15/18 1515:00 23:00 07:00 IntakeIntake Total 2240 ml 1360 ml 1250 ml OutputOutput Total 1050 ml 300 ml 800 ml BalanceBalance 1190 ml 1060 ml 450 ml Exam Constitutional: alert, oriented Head: normocephalic Neck: supple Respiratory: clear to auscultation Cardiovascular: nl pulses Gastrointestinal: soft, tender, other (Midline abdominal incision), lower abdominal ecchymosis with extension to the lower back. Extremities: normal pulses Neurological: nl mental status Results Results 24hrs Laboratory Tests Test 08/14/18 17:14 08/14/18 20:42 08/14/18 23:00 08/15/18 07:00 Bedside Glucose 100 113 Stool Occult Blood NEGATIVE White Blood Count 7.5 Red Blood Count 3.02 L Hemoglobin 9.4 L Hematocrit 27.7 L Mean Corpuscular 91.7 Volume Mean Corpuscular 31.1 Hemoglobin Mean Corpuscular 33.9 Hemoglobin Concent Red Cell 14.9 H Distribution Width Platelet Count 232 Mean Platelet Volume 9.9 Immature 0.700 H Granulocytes % Neutrophils % 72.2 Lymphocytes % 14.2 L Monocytes % 11.9 H Eosinophils % 0.7 Basophils % 0.3 Nucleated Red Blood 0.0 Cells % Immature 0.050 H Granulocytes # Neutrophils # 5.5 Lymphocytes # 1.1 Monocytes # 0.9 Eosinophils # 0.1 Basophils # 0.0 Nucleated Red Blood 0.0 Cells # Sodium Level 137 Potassium Level 3.6 Chloride Level 103 Carbon Dioxide Level 26 Anion Gap 8 Blood Urea Nitrogen 13 Creatinine 0.79 Est Glomerular > 60 Filtrat Rate mL/min Glucose Level 91 Calcium Level 8.1 L Test 08/15/18 07:57 08/15/18 12:00 08/15/18 17:01 Bedside Glucose 95 122 99 Medications Medication Current Medications Sodium Chloride 1,000 ml @ 125 mls/hr Q8H IV Last administered on 08/15/18 13:36; Admin Dose 125 MLS/HR; Start 08/12/18 at 20:22 IV Flush (NS 3 ml) 3 ml PER PROTOCOL IV ; Start 08/12/18 at 20:30 Ondansetron HCl (Zofran Inj) 4 mg Q6H PRN IV NAUSEA/VOMITING Last administered on 08/14/18 20:33; Admin Dose 4 MG; Start 08/12/18 at 20:30 Acetaminophen (Tylenol Tab) 650 mg Q6H PRN PO .PAIN 1-3 OR TEMP; Start 08/12/18 at 20:30 Morphine Sulfate (morphine) 2 mg Q4H PRN IV .SEVERE PAIN 7-10; Start 08/12/18 at 20:30 Enoxaparin Sodium (Lovenox) 30 mg DAILY SC Last administered on 08/15/18 08:39; Admin Dose 30 MG; Start 08/13/18 at 09:00 Miscellaneous Information Patients own medicat... BID@10,16 XX ; Start 08/13/18 at 10:00 Amlodipine Besylate (Norvasc) 5 mg QPM PO Last administered on 08/14/18 20:34; Admin Dose 5 MG; Start 08/13/18 at 21:00 Atorvastatin Calcium (Lipitor) 10 mg QHS PO Last administered on 08/14/18 20: 34; Admin Dose 10 MG; Start 08/13/18 at 21:00 Benazepril HCl (Lotensin) 40 mg DAILY PO Last administered on 08/15/18 08:36; Admin Dose 40 MG; Start 08/13/18 at 09:00 Fenofibrate (Tricor) 145 mg DAILY PO Last administered on 08/15/18 08:36; Admin Dose 145 MG; Start 08/13/18 at 09:00 Hydralazine HCl (Apresoline) 50 mg DAILY PO Last administered on 08/15/18 08:36; Admin Dose 50 MG; Start 08/13/18 at 09:00 Hydrochlorothiazide (Hydrochlorothiazide) 25 mg DAILY PO Last administered on 08/15/18 08:36; Admin Dose 25 MG; Start 08/13/18 at 09:00 Metformin HCl (Glucophage) 850 mg WITH MEALS PO Last administered on 3/26/19at 12:11; Admin Dose 850 MG; Start 08/13/18 at 07:35 Loratadine (Claritin) 10 mg DAILY PO Last administered on 08/15/18at 08:36; Admin Dose 10 MG; Start 08/13/18 at 09:00 Diagnostic Test (Pha) (Accu-Chek) 1 ea AC MEALS AND BEDTIME XX Last administered on 08/13/18at 11:57; Admin Dose 1 EA; Start 08/13/18 at 07:30 Insulin Aspart (Novolog Insulin Pen) NOVOLOG *MILD* ALGORITHM WITH MEALS BEDTIME SC ; Start 08/13/18 at 08:00 Diagnostic Test (Pha) (Accu-Chek) 1 ea 02 XX ; Start 08/14/18 at 02:00 Miscellaneous Information 1 ea NOTE XX ; Start 08/13/18 at 07:00 Glucose (Glutose) 15 gm Q15M PRN PO DECREASED GLUCOSE; Start 08/13/18 at 07:00 Glucose (Glutose) 22.5 gm Q15M PRN PO DECREASED GLUCOSE; Start 08/13/18 at 07:00 Dextrose (D50w Syringe) 25 ml Q15M PRN IV DECREASED GLUCOSE; Start 08/13/18 at 07:00 Dextrose (D50w Syringe) 50 ml Q15M PRN IV DECREASED GLUCOSE; Start 08/13/18 at 07:00 Glucagon (Glucagen) 1 mg Q15M PRN IM DECREASED GLUCOSE; Start 08/13/18 at 07:00 Glucose (Glutose) 15 gm Q15M PRN BUCCAL DECREASED GLUCOSE; Start 08/13/18 at 07:00 Pantoprazole (Protonix Iv) 40 mg DAILY@06 IV ; Start 08/16/18 at 06:00 NILAM WICK Aug 15, 2018 17:12
[2018-08-15 20:00] VITALS: BP 144/72; PULSE 76; RESP 18
[2018-08-15] MEDS: ATORVASTATIN 10 MG TAB PO SCH (21:17)
[2018-08-15] MEDS: AMLODIPINE 5 MG TAB PO SCH (21:17)
[2018-08-15] MEDS: LOPERAMIDE 2 MG CAP PO PRN (21:17)
[2018-08-15] MEDS: metroNIDAZOLE 500 MG/NS (PMX) 100 ML IVPB SCH (21:20)
[2018-08-16] MEDS: LOPERAMIDE 2 MG CAP PO PRN (01:22)
[2018-08-16] MEDS: ACCU-CHEK XX SCH ×5 (01:40→20:42)
[2018-08-16 01:52] VITALS: BP 150/76; PULSE 67; RESP 19
[2018-08-16] MEDS: SOD CHLORIDE 0.9% 1,000 ML IV SCH ×4 (04:22→20:22)
[2018-08-16] MEDS: metroNIDAZOLE 500 MG/NS (PMX) 100 ML IVPB SCH ×3 (05:25→21:43)
[2018-08-16] MEDS: PANTOPRAZOLE 40 MG INJ IV SCH (05:29)
[2018-08-16] MEDS: INSULIN ASPART [NOVOLOG] 3 ML PEN SC SCH ×4 (07:51→20:41)
[2018-08-16 08:01] VITALS: BP 160/79; PULSE 62; RESP 18
[2018-08-16] MEDS: LORATADINE 10 MG TAB PO SCH (08:23)
[2018-08-16] MEDS: HYDROCHLOROTHIAZIDE 25 MG TAB PO SCH (08:24)
[2018-08-16] MEDS: BENAZEPRIL 40 MG TAB PO SCH (08:24)
[2018-08-16] MEDS: FENOFIBRATE 145 MG TAB PO SCH (08:24)
[2018-08-16] MEDS: metFORMIN 850 MG TAB PO SCH ×3 (08:25→17:33)
[2018-08-16 14:29] VITALS: BP 142/69; PULSE 72; RESP 18
--- NOTE | 2018-08-16 15:39 | PN ---
Date/Time of Note Date/Time of Note DATE: 08/16/18 TIME: 15:37 Assessment/Plan VTE Prophylaxis Risk score (from Ns)>0 risk: 2 SCD applied (from Ns): Yes Pharmacological prophylaxis: NA/contraindicated Pharm contraindication: bleeding, other (Postoperative ecchymosis and hematoma) Lines/Catheters IV C[facility]ter Type (from [facility]): Peripheral IV Assessment/Plan Hospital Course Patient complains of occasional nausea relieved with Zofran, diarrhea last night, improved today, continue Imodium as needed for diarrhea, patient stated he feels tired continue IV fluids Imodium as needed for diarrhea, monitor H&H Assessment/Plan -Anemia with hemoglobin of 6.8 on admission due to acute blood loss, requiring blood transfusion, continue to monitor H&H. Continue to monitor. -Diarrhea, stool for C. difficile is negative, continue IV fluids. -Nausea and abdominal pain on admission, continue Zofran as needed for nausea. -Status post hernia repair by Dr. Fields on 08/07/2018. is following general surgery consultation. -Diabetes mellitus -Hypertension -Hyperlipidemia Further recommendations based on clinical course. Plan of care discussed with Dr. Carrizales. Result Diagram: 08/15/18 0700 08/15/18 0700 Results 24hrs Laboratory Tests Test 08/15/18 17:01 08/15/18 21:25 08/16/18 07:48 08/16/18 11:57 Bedside Glucose 99 114 90 114 Exam/Review of Systems Exam Vitals Vital Signs Date Temp Pulse Resp B/P (MAP) Pulse Ox O2 O2 Flow FiO2 Time Delivery Rate 08/16/18 98.1 72 18 142/69 98 14:29 (93) 08/15/18 Room Air 15:01 Intake and Output 08/15/18 08/15/18 08/16/18 1515:00 23:00 07:00 IntakeIntake Total 1640 ml 1420 ml 100 ml OutputOutput Total 350 ml BalanceBalance 1290 ml 1420 ml 100 ml Exam Constitutional: alert, oriented Respiratory: clear to auscultation Cardiovascular: nl pulses Gastrointestinal: soft, tender, other (Midline abdominal incision), lower abdominal ecchymosis with extension to the lower back. Extremities: normal pulses Neurological: nl mental status Results Results 24hrs Laboratory Tests Test 08/15/18 17:01 08/15/18 21:25 08/16/18 07:48 08/16/18 11:57 Bedside Glucose 99 114 90 114 Medications Medication Current Medications Sodium Chloride 1,000 ml @ 125 mls/hr Q8H IV Last administered on 08/16/18 07:30; Admin Dose 125 MLS/HR; Start 08/12/18 at 20:22 IV Flush (NS 3 ml) 3 ml PER PROTOCOL IV ; Start 08/12/18 at 20:30 Ondansetron HCl (Zofran Inj) 4 mg Q6H PRN IV NAUSEA/VOMITING Last administered on 08/14/18 20:33; Admin Dose 4 MG; Start 08/12/18 at 20:30 Acetaminophen (Tylenol Tab) 650 mg Q6H PRN PO .PAIN 1-3 OR TEMP; Start 08/12/18 at 20:30 Morphine Sulfate (morphine) 2 mg Q4H PRN IV .SEVERE PAIN 7-10; Start 08/12/18 at 20:30 Miscellaneous Information Patients own medicat... BID@10,16 XX ; Start 08/13/18 at 10:00 Amlodipine Besylate (Norvasc) 5 mg QPM PO Last administered on 08/15/18 21:17; Admin Dose 5 MG; Start 08/13/18 at 21:00 Atorvastatin Calcium (Lipitor) 10 mg QHS PO Last administered on 08/15/18 21:17; Admin Dose 10 MG; Start 08/13/18 at 21:00 Benazepril HCl (Lotensin) 40 mg DAILY PO Last administered on 08/16/18 08:24; Admin Dose 40 MG; Start 08/13/18 at 09:00 Fenofibrate (Tricor) 145 mg DAILY PO Last administered on 08/16/18 08:24; Admin Dose 145 MG; Start 08/13/18 at 09:00 Hydralazine HCl (Apresoline) 50 mg DAILY PO Last administered on 08/16/18 08:23; Admin Dose 50 MG; Start 08/13/18 at 09:00 Hydrochlorothiazide (Hydrochlorothiazide) 25 mg DAILY PO Last administered on 08/16/18 08:24; Admin Dose 25 MG; Start 08/13/18 at 09:00 Metformin HCl (Glucophage) 850 mg WITH MEALS PO Last administered on 08/16/18 12:26; Admin Dose 850 MG; Start 08/13/18 at 07:35 Loratadine (Claritin) 10 mg DAILY PO Last administered on 08/16/18at 08:23; Admin Dose 10 MG; Start 08/13/18 at 09:00 Diagnostic Test (Pha) (Accu-Chek) 1 ea AC MEALS AND BEDTIME XX Last administered on 08/13/18at 11:57; Admin Dose 1 EA; Start 08/13/18 at 07:30 Insulin Aspart (Novolog Insulin Pen) NOVOLOG *MILD* ALGORITHM WITH MEALS BEDTIME SC ; Start 08/13/18 at 08:00 Diagnostic Test (Pha) (Accu-Chek) 1 ea 02 XX ; Start 08/14/18 at 02:00 Miscellaneous Information 1 ea NOTE XX ; Start 08/13/18 at 07:00 Glucose (Glutose) 15 gm Q15M PRN PO DECREASED GLUCOSE; Start 08/13/18 at 07:00 Glucose (Glutose) 22.5 gm Q15M PRN PO DECREASED GLUCOSE; Start 08/13/18 at 07:00 Dextrose (D50w Syringe) 25 ml Q15M PRN IV DECREASED GLUCOSE; Start 08/13/18 at 07:00 Dextrose (D50w Syringe) 50 ml Q15M PRN IV DECREASED GLUCOSE; Start 08/13/18 at 07:00 Glucagon (Glucagen) 1 mg Q15M PRN IM DECREASED GLUCOSE; Start 08/13/18 at 07:00 Glucose (Glutose) 15 gm Q15M PRN BUCCAL DECREASED GLUCOSE; Start 08/13/18 at 07:00 Pantoprazole (Protonix Iv) 40 mg DAILY@06 IV Last administered on 08/16/18at 05:29; Admin Dose 40 MG; Start 08/16/18 at 06:00 Loperamide HCl (Imodium Cap) 2 mg Q4H PRN PO DIARRHEA Last administered on 08/16/18at 01:22; Admin Dose 2 MG; Start 08/15/18 at 21:00 Metronidazole 100 ml @ 100 mls/hr Q8 IVPB Last administered on 08/16/18at 13:44; Admin Dose 100 MLS/HR; Start 08/15/18 at 22:00 NILAM WICK Aug 16, 2018 15:39
[2018-08-16 20:41] VITALS: BP 151/70; PULSE 77; RESP 20
[2018-08-16] MEDS: ATORVASTATIN 10 MG TAB PO SCH (20:41)
[2018-08-16] MEDS: AMLODIPINE 5 MG TAB PO SCH (20:42)
[2018-08-16] MEDS: ONDANSETRON 4 MG INJ IV PRN (23:00)
[2018-08-17] MEDS: ACCU-CHEK XX SCH ×3 (02:00→11:58)
[2018-08-17 02:30] VITALS: BP 148/72; PULSE 58; RESP 18
[2018-08-17] MEDS: PANTOPRAZOLE 40 MG INJ IV SCH (05:41)
[2018-08-17] MEDS: metroNIDAZOLE 500 MG/NS (PMX) 100 ML IVPB SCH ×2 (05:41→13:26)
[2018-08-17] MEDS: SOD CHLORIDE 0.9% 1,000 ML IV SCH ×2 (05:42→14:00)
[2018-08-17] MEDS: INSULIN ASPART [NOVOLOG] 3 ML PEN SC SCH ×2 (07:59→11:58)
[2018-08-17] MEDS: metFORMIN 850 MG TAB PO SCH ×2 (08:21→11:58)
[2018-08-17] MEDS: FENOFIBRATE 145 MG TAB PO SCH (08:21)
[2018-08-17] MEDS: LORATADINE 10 MG TAB PO SCH (08:21)
[2018-08-17] MEDS: BENAZEPRIL 40 MG TAB PO SCH (08:22)
[2018-08-17] MEDS: HYDROCHLOROTHIAZIDE 25 MG TAB PO SCH (08:22)
[2018-08-17 08:38] VITALS: BP 159/75; PULSE 61; RESP 18
--- NOTE | 2018-08-17 09:23 | PN ---
Date/Time of Note Date/Time of Note DATE: 08/17/18 TIME: 09:15 Assessment/Plan VTE Prophylaxis Risk score (from Ns)>0 risk: 2 SCD applied (from Ns): Yes Pharmacological prophylaxis: other Lines/Catheters IV Catheter Type (from Nrsg): Peripheral IV Assessment/Plan Assessment/Plan s/p component separation was doing well initially and then did strenuous activities and had anemia and vomiting now stable for past three days and hgb stable will dc home with close followup in the clinic Result Diagram: 08/17/18 0539 08/17/18 0539 Results 24hrs Laboratory Tests Test 08/16/18 11:57 08/16/18 17:17 08/16/18 20:40 08/17/18 05:39 Bedside Glucose 114 104 117 White Blood Count 8.0 Red Blood Count 3.18 L Hemoglobin 9.9 L Hematocrit 29.9 L Mean Corpuscular 94.0 Volume Mean Corpuscular 31.1 Hemoglobin Mean Corpuscular 33.1 Hemoglobin Concen t Red Cell 15.4 H Distribution Width Platelet Count 224 Mean Platelet 9.7 Volume Immature 0.600 H Granulocytes % Neutrophils % 68.1 Lymphocytes % 17.9 Monocytes % 11.3 H Eosinophils % 1.8 Basophils % 0.3 Nucleated Red 0.0 Blood Cells % Immature 0.050 H Granulocytes # Neutrophils # 5.4 Lymphocytes # 1.4 Monocytes # 0.9 Eosinophils # 0.1 Basophils # 0.0 Nucleated Red 0.0 Blood Cells # Sodium Level 138 Potassium Level 3.7 Chloride Level 101 Carbon Dioxide 26 Level Anion Gap 11 Blood Urea 13 Nitrogen Creatinine 0.76 Est Glomerular > 60 Filtrat Rate mL/min Glucose Level 87 Calcium Level 8.4 Test 08/17/18 06:47 08/17/18 07:52 Lab Scanned BLOOD TRANSFUSIO Report N Bedside Glucose 99 Subjective 24 Hr Interval Summary Free Text/Dictation hgb stable for past three days. patient feeling better Exam/Review of Systems Exam Vitals Vital Signs Date Temp Pulse Resp B/P (MAP) Pulse Ox O2 O2 Flow FiO2 Time Delivery Rate 08/17/18 98.0 61 18 159/75 96 Room Air 08:38 (103) Intake and Output 08/16/18 08/16/18 08/17/18 1515:00 23:00 07:00 IntakeIntake Total 1580 ml 2460 ml 400 ml OutputOutput Total 970 ml 300 ml BalanceBalance 610 ml 2160 ml 400 ml Exam c/d/i still ecchymosis but skin is soft Results Results 24hrs Laboratory Tests Test 08/16/18 11:57 08/16/18 17:17 08/16/18 20:40 08/17/18 05:39 Bedside Glucose 114 104 117 White Blood Count 8.0 Red Blood Count 3.18 L Hemoglobin 9.9 L Hematocrit 29.9 L Mean Corpuscular 94.0 Volume Mean Corpuscular 31.1 Hemoglobin Mean Corpuscular 33.1 Hemoglobin Concen t Red Cell 15.4 H Distribution Width Platelet Count 224 Mean Platelet 9.7 Volume Immature 0.600 H Granulocytes % Neutrophils % 68.1 Lymphocytes % 17.9 Monocytes % 11.3 H Eosinophils % 1.8 Basophils % 0.3 Nucleated Red 0.0 Blood Cells % Immature 0.050 H Granulocytes # Neutrophils # 5.4 Lymphocytes # 1.4 Monocytes # 0.9 Eosinophils # 0.1 Basophils # 0.0 Nucleated Red 0.0 Blood Cells # Sodium Level 138 Potassium Level 3.7 Chloride Level 101 Carbon Dioxide 26 Level Anion Gap 11 Blood Urea 13 Nitrogen Creatinine 0.76 Est Glomerular > 60 Filtrat Rate mL/min Glucose Level 87 Calcium Level 8.4 Test 08/17/18 06:47 08/17/18 07:52 Lab Scanned BLOOD TRANSFUSIO Report N Bedside Glucose 99 Medications Medication Current Medications Sodium Chloride 1,000 ml @ 125 mls/hr Q8H IV Last administered on 08/17/18at 05:42; Admin Dose 125 MLS/HR; Start 08/12/18 at 20:22 IV Flush (NS 3 ml) 3 ml PER PROTOCOL IV ; Start 08/12/18 at 20:30 Ondansetron HCl (Zofran Inj) 4 mg Q6H PRN IV NAUSEA/VOMITING Last administered on 08/16/18at 23:00; Admin Dose 4 MG; Start 08/12/18 at 20:30 Acetaminophen (Tylenol Tab) 650 mg Q6H PRN PO .PAIN 1-3 OR TEMP; Start 08/12/18 at 20:30 Morphine Sulfate (morphine) 2 mg Q4H PRN IV .SEVERE PAIN 7-10; Start 08/12/18 at 20:30 Miscellaneous Information Patients own medicat... BID@16 XX ; Start 08/13/18 at 10:00 Amlodipine Besylate (Norvasc) 5 mg QPM PO Last administered on 08/16/18 20:42; Admin Dose 5 MG; Start 08/13/18 at 21:00 Atorvastatin Calcium (Lipitor) 10 mg QHS PO Last administered on 08/16/18 20:41; Admin Dose 10 MG; Start 08/13/18 at 21:00 Benazepril HCl (Lotensin) 40 mg DAILY PO Last administered on 08/17/18 08:22; Admin Dose 40 MG; Start 08/13/18 at 09:00 Fenofibrate (Tricor) 145 mg DAILY PO Last administered on 08/17/18 08:21; Admin Dose 145 MG; Start 08/13/18 at 09:00 Hydralazine HCl (Apresoline) 50 mg DAILY PO Last administered on 08/17/18 08:22; Admin Dose 50 MG; Start 08/13/18 at 09:00 Hydrochlorothiazide (Hydrochlorothiazide) 25 mg DAILY PO Last administered on 08/17/18 08:22; Admin Dose 25 MG; Start 08/13/18 at 09:00 Metformin HCl (Glucophage) 850 mg WITH MEALS PO Last administered on 08/17/18 08:21; Admin Dose 850 MG; Start 08/13/18 at 07:35 Loratadine (Claritin) 10 mg DAILY PO Last administered on 08/17/18 08:21; Admin Dose 10 MG; Start 08/13/18 at 09:00 Diagnostic Test (Pha) (Accu-Chek) 1 ea AC MEALS AND BEDTIME XX Last admin istered on 08/17/18 07:59; Admin Dose 1 EA; Start 08/13/18 at 07:30 Insulin Aspart (Novolog Insulin Pen) NOVOLOG *MILD* ALGORITHM WITH MEALS BEDTIME SC ; Start 08/13/18 at 08:00 Diagnostic Test (Pha) (Accu-Chek) 1 ea 02 XX ; Start 08/14/18 at 02:00 Miscellaneous Information 1 ea NOTE XX ; Start 08/13/18 at 07:00 Glucose (Glutose) 15 gm Q15M PRN PO DECREASED GLUCOSE; Start 08/13/18 at 07:00 Glucose (Glutose) 22.5 gm Q15M PRN PO DECREASED GLUCOSE; Start 08/13/18 at 07:00 Dextrose (D50w Syringe) 25 ml Q15M PRN IV DECREASED GLUCOSE; Start 08/13/18 at 07:00 Dextrose (D50w Syringe) 50 ml Q15M PRN IV DECREASED GLUCOSE; Start 08/13/18 at 07:00 Glucagon (Glucagen) 1 mg Q15M PRN IM DECREASED GLUCOSE; Start 08/13/18 at 07:00 Glucose (Glutose) 15 gm Q15M PRN BUCCAL DECREASED GLUCOSE; Start 08/13/18 at 07:00 Pantoprazole (Protonix Iv) 40 mg DAILY@06 IV Last administered on 08/17/18at 05:41; Admin Dose 40 MG; Start 08/16/18 at 06:00 Loperamide HCl (Imodium Cap) 2 mg Q4H PRN PO DIARRHEA Last administered on 08/16/18at 01:22; Admin Dose 2 MG; Start 08/15/18 at 21:00 Metronidazole 100 ml @ 100 mls/hr Q8 IVPB Last administered on 08/17/18at 05:41; Admin Dose 100 MLS/HR; Start 08/15/18 at 22:00 Joe BARRETO Aug 17, 2018 09:23
[2018-08-17 14:13] VITALS: BP 131/72; PULSE 70; RESP 18
--- NOTE | 2018-08-17 20:11 | DS ---
Date/Time of Note Date/Time of Note DATE: 08/17/18 TIME: 20:08 Discharge Summary Admission/Discharge Info Admit Date/Time Aug 15, 2018 at 07:52 Discharge Date/Time Aug 17, 2018 at 15:25 Patient Condition: Stable Hx of Present Illness Patient with hypertension, hyperlipidemia, diabetes who recently had hernia repair comes back to the ER complaining of nausea and vomiting. Patient was found to be anemic and dehydrated and so he is admitted for further evaluation and treatment with intravenous fluids and blood transfusion. Hospital Course -Anemia with hemoglobin of 6.8 on admission due to acute blood loss, requiring blood transfusion, continue to monitor H&H. Continue to monitor. -Diarrhea, stool for C. difficile is negative, continue IV fluids, resolved. -Nausea and abdominal pain on admission, continue Zofran as needed for nausea,resolved. -Status post hernia repair by Dr. Fields on 08/07/2018. is following general surgery consultation. -Diabetes mellitus -Hypertension -Hyperlipidemia Plan of care discussed with Dr. Carrizales. Home Meds Reported Medications Atorvastatin Calcium (Atorvastatin Calcium) 10 Mg Tablet, 10 MG PO QHS, #30 TAB 08/07/18 Cetirizine Hcl* (Cetirizine Hcl*) 10 Mg Tab.chew, 10 MG PO DAILY, #30 TAB 08/07/18 Amlodipine Besylate* (Amlodipine Besylate*) 5 Mg Tablet, 5 MG PO QPM, #30 TAB 09/23/17 Fenofibrate Nanocrystallized* (Fenofibrate*) 145 Mg Tablet, 145 MG PO DAILY, TAB 09/23/17 Metformin* (Glucophage*) 850 Mg Tablet, 850 MG PO WITH MEALS, #90 TAB 09/23/17 Hydralazine Hcl* (Hydralazine Hcl*) 50 Mg Tab, 50 MG PO DAILY, #60 TAB 09/23/17 Benazepril Hcl* (Benazepril Hcl*) 40 Mg Tablet, 40 MG PO DAILY, #30 TAB 09/23/17 Hydrochlorothiazide* (Hydrochlorothiazide*) 25 Mg Tab, 25 MG PO DAILY, #60 TAB 04/23/16 Discontinued Scripts Aspirin* (Aspirin* EC) 325 Mg Tab, 325 MG PO DAILY, #90 TAB Prov:CHEPE SANDERSON MD 09/24/17 Follow-up Plan Follow-up with Dr. Fields in 2 weeks Primary Care Provider Zak Arias MD Time spent on discharge: > 30 minutes Pending Labs Laboratory Tests Test 08/16/18 20:40 08/17/18 05:39 08/17/18 06:47 08/17/18 07:52 Bedside 117 99 Glucose mg/dL (70-220) mg/dL (70-220) White Blood 8.0 Count 10^3/ul (4.8-1 0.8) Red Blood 3.18 Count 10^6/ul (4.70- 6.10) Hemoglobin 9.9 g/dl (14.0-18. 0) Hematocrit 29.9 % (42.0-52.0) Mean 94.0 Corpuscular fl (82.0-101.0 Volume ) Mean 31.1 Corpuscular pg (29.0-33.0) Hemoglobin Mean 33.1 Corpuscular g/dl (32.0-37. Hemoglobin Conc 0) ent Red Cell 15.4 Distribution % (11.5-14.5) Width Platelet Count 224 10^3/UL (140-4 15) Mean Platelet 9.7 Volume fl (7.4-10.4) Immature 0.600 Granulocytes % % (0.001-0.429 ) Neutrophils % 68.1 % (39.0-77.0) Lymphocytes % 17.9 % (15.0-51.0) Monocytes % 11.3 % (0.0-11.0) Eosinophils % 1.8 % (0.0-7.0) Basophils % 0.3 % (0.0-2.0) Nucleated Red 0.0 Blood Cells % /100WBC (0.0-0 .0) Immature 0.050 Granulocytes # 10^3/ul (0.0-0 .031) Neutrophils # 5.4 10^3/ul (1.6-7 .5) Lymphocytes # 1.4 10^3/ul (0.8-2 .9) Monocytes # 0.9 10^3/ul (0.3-0 .9) Eosinophils # 0.1 10^3/ul (0.0-0 .5) Basophils # 0.0 10^3/ul (0.0-0 .1) Nucleated Red 0.0 Blood Cells # 10^3/ul (0.0-0 .0) Sodium Level 138 mmol/L (135-14 4) Potassium 3.7 Level mmol/L (3.5-5. 1) Chloride Level 101 mmol/L (97-110 ) Carbon Dioxide 26 Level mmol/L (21-31) Anion Gap 11 (5-13) Blood Urea 13 Nitrogen mg/dl (7-20) Creatinine 0.76 mg/dl (0.61-1. 24) Est Glomerular > 60 Filtrat mL/min (>60) Rate mL/min Glucose Level 87 mg/dl (70-220) Calcium Level 8.4 mg/dl (8.4-10. 2) Lab Scanned BLOOD TRANSFUS Report ION Test 08/17/18 11:55 Bedside 104 Glucose mg/dL (70-220) NILAM WICK Aug 17, 2018 20:11
== END 2018-08-17 15:25 | disposition home or self-care (01) | DRG 920 ==
LOC: E/R 13:56 → PP2 19:54 → OBSVTOIN 08-15 07:52
PROVIDERS: ADMIT Internal Medicine; ATTEND Internal Medicine
PROC: 30233N1 Transfusion of Nonautologous Red Blood Cells into Peripheral Vein, Percutaneous Approach (ICD-10-PCS; 2018-08-12)
PROC: 30233N1 Transfusion of Nonautologous Red Blood Cells into Peripheral Vein, Percutaneous Approach (ICD-10-PCS; principal; 2018-08-13)
DX: L76.32 Postprocedural hematoma of skin and subcutaneous tissue following other procedure (principal); D62 Acute posthemorrhagic anemia; E11.9 Type 2 diabetes mellitus without complications; E86.0 Dehydration; R19.7 Diarrhea, unspecified; I10 Essential (primary) hypertension; E78.5 Hyperlipidemia, unspecified; Y84.8 Other medical procedures as the cause of abnormal reaction of the patient, or of later complication, without mention of misadventure at the time of the procedure; Y92.019 Unspecified place in single-family (private) house as the place of occurrence of the external cause; Z79.4 Long term (current) use of insulin; Z79.82 Long term (current) use of aspirin
CPT/HCPCS: 36415; 36430; 80048; 80053; 81001; 82270; 82962; 83036; 83690; 85025; 86850; 86900; 86901; 86920; 87075; 87081; 96361; 96374; G0378; C9113; J1650; J1815; J2405; J7030; J7040; P9016

== ENCOUNTER 2018-09-11 14:45 | Emergency (ER) | payer OTHER ==
[~2018-09-11] VITALS: Ht 170.2 cm; Wt 76.9 kg
[~2018-09-11 14:45] MED LIST changes: -ASPI325T32 PO
[2018-09-11 14:49] VITALS: Ht 170.2 cm; Wt 76.9 kg
[2018-09-11] MEDS ORDERED: ALBUTEROL/IPRATROPIUM (NEB) 3 ML AMP HHN STA (16:37)
--- NOTE | 2018-09-11 16:42 | ERD ---
ER Documentation Chief Complaint Chief Complaint cough, congestion & wheezing x 8 days HPI This is a 58-year-old male patient who presents to the emergency room with complaint of flu like symptoms with cough increasing in frequency x2 days. Complaint of production of white phlegm, worsens with lying down, denies fever, denies chills, no nausea, no vomiting. History of asthma. Does not smoke. No chest pain. ROS All systems reviewed and are negative except as per history of present illness. Medications Home Meds Active Scripts Prednisone* (Prednisone*) 20 Mg Tab, 40 MG PO DAILY for asthma exacerbation for 4 Days, TAB Prov:BEE DUMONT GLOBAL COORDINATOR 09/11/18 Guaifenesin (Mucinex) 1,200 Mg Tab.er.12h, 1200 MG PO DAILY for 10 Days, #10 TAB Prov:BEE DUMONT GLOBAL COORDINATOR 09/11/18 Reported Medications Atorvastatin Calcium (Atorvastatin Calcium) 10 Mg Tablet, 10 MG PO QHS, #30 TAB 08/07/18 Cetirizine Hcl* (Cetirizine Hcl*) 10 Mg Tab.chew, 10 MG PO DAILY, #30 TAB 08/07/18 Amlodipine Besylate* (Amlodipine Besylate*) 5 Mg Tablet, 5 MG PO QPM, #30 TAB 09/23/17 Fenofibrate Nanocrystallized* (Fenofibrate*) 145 Mg Tablet, 145 MG PO DAILY, TAB 09/23/17 Metformin* (Glucophage*) 850 Mg Tablet, 850 MG PO WITH MEALS, #90 TAB 09/23/17 Hydralazine Hcl* (Hydralazine Hcl*) 50 Mg Tab, 50 MG PO DAILY, #60 TAB 09/23/17 Benazepril Hcl* (Benazepril Hcl*) 40 Mg Tablet, 40 MG PO DAILY, #30 TAB 09/23/17 Hydrochlorothiazide* (Hydrochlorothiazide*) 25 Mg Tab, 25 MG PO DAILY, #60 TAB 04/23/16 Allergies Allergies: Coded Allergies: No Known Allergy (Unverified , 08/12/18) PMhx/Soc History of Surgery: Yes (Hernia Surgery 2018) Anesthesia Reaction: Yes (2018 - nausea/vomiting) Hx Neurological Disorder: Yes (TIA September 2017 x3) Hx Respiratory Disorders: Yes (asthma) Hx Cardiac Disorders: Yes (hypertension) Hx Psychiatric Problems: No Hx Miscellaneous Medical Probl: No Hx Alcohol Use: No Hx Substance Use: No Hx Tobacco Use: No Smoking Status: Never smoker Physical Exam Vitals Vital Signs Date Temp Pulse Resp B/P (MAP) Pulse Ox O2 O2 Flow FiO2 Time Delivery Rate 09/11/18 98.6 66 18 160/85 98 Room Air 20:02 (110) 09/11/18 98.1 75 18 191/88 96 Room Air 18:36 (122) 09/11/18 74 20 96 21 16:59 09/11/18 97.7 72 18 192/84 96 14:49 (120) Physical Exam Const: No acute distress Head: Atraumatic Eyes: Normal Conjunctiva, PERRL ENT: Normal External Ears, Nose and Mouth. Pharynx pink without lesions or exudate. Neck: Full range of motion. No meningismus. Resp: +inspiratory wheeze to RUL, no grunting, no retractions Cardio: Regular rate and rhythm, no murmurs Abd: Soft, non tender, non distended. Normal bowel sounds Skin: No petechiae or rashes Back: No midline or flank tenderness Ext: No cyanosis, or edema Neur: Awake and alert Psych: Normal Mood and Affect Result Diagram: 09/11/18 1645 09/11/18 1645 Results 24 hrs Laboratory Tests Test 09/11/18 16:45 White Blood Count 6.3 10^3/ul Red Blood Count 4.09 10^6/ul Hemoglobin 12.7 g/dl Hematocrit 38.5 % Mean Corpuscular Volume 94.1 fl Mean Corpuscular Hemoglobin 31.1 pg Mean Corpuscular Hemoglobin Concent 33.0 g/dl Red Cell Distribution Width 13.8 % Platelet Count 171 10^3/UL Mean Platelet Volume 10.3 fl Immature Granulocytes % 0.200 % Neutrophils % % Segmented Neutrophils % (Manual) 67 % Band Neutrophils % (Manual) 2 % Lymphocytes % % Lymphocytes % (Manual) 24 % Reactive Lymphocytes % (Manual) 3 % Monocytes % % Monocytes % (Manual) 2 % Eosinophils % % Eosinophils % (Manual) 1 % Basophils % % Basophils % (Manual) 1 % Nucleated Red Blood Cells % 0.0 /100WBC Immature Granulocytes # 0.010 10^3/ul Neutrophils # 10^3/ul Neutrophils # (Manual) 4.2 10^3/ul Band Neutrophils # 0.1 10^3/ul Lymphocytes (Manual) 1.5 10^3/ul Lymphocytes # 10^3/ul Reactive Lymphocytes # 0.1 10^3/ul Monocytes # 10^3/ul Monocytes # (Manual) 0.1 10^3/ul Eosinophils # 10^3/ul Basophils # 10^3/ul Basophils # (Manual) 0.0 10^3/ul Nucleated Red Blood Cells # 10^3/ul Platelet Estimate NORMAL Giant Platelets 1 % Sodium Level 140 mmol/L Potassium Level 4.7 mmol/L Chloride Level 103 mmol/L Carbon Dioxide Level 29 mmol/L Anion Gap 8 Blood Urea Nitrogen 12 mg/dl Creatinine 0.86 mg/dl Est Glomerular Filtrat Rate mL/min > 60 mL/min Glucose Level 98 mg/dl Calcium Level 9.6 mg/dl Total Bilirubin 0.5 mg/dl Direct Bilirubin 0.00 mg/dl Indirect Bilirubin 0.5 mg/dl Aspartate Amino Transf (AST/SGOT) 34 IU/L Alanine Aminotransferase (ALT/SGPT) 27 IU/L Alkaline Phosphatase 74 IU/L Total Protein 8.0 g/dl Albumin 4.5 g/dl Globulin 3.50 g/dl Albumin/Globulin Ratio 1.28 Current Medications Medications Dose Sig/[place] Start Time Status Last (Trade) Ordered Route PRN Stop Time Admin Dose Reason Admin Albuterol/ 3 ml ONCE STAT 09/11/18 DC 09/11/18 Ipratropium HHN 16:37 16:59 (Duoneb) 09/11/18 16:40 Clonidine 0.1 mg ONCE ONCE 09/11/18 DC 09/11/18 (Catapres) PO 19:30 19:40 09/11/18 19:31 Procedures/MDM this is a 58 yo male who presents with wheezing and cough. ED COURSE: The patient was stable throughout ED course. DIAGNOSTIC IMAGING: The heart is within normal limits. There is mild left lower lobe linear atelectasis. The lungs are otherwise clear. There is no pleural effusion or pneumothorax. There are degenerative changes of the spine with osteophytes. Read by radiologist. MEDICATIONS GIVEN: Albuterol, clonidine Patient tolerated medication well with no adverse reactions. Patient reported improvement in breathing. MDM: Patient's respiratory status has stabilized while in the department and is appropriate for outpatient work up. Exam and work up not consistent w/ impending respiratory failure or cardiovascular collapse. She has been counseled on his hypertension and taking his hypertension medications. States he has follow-up appointment with his PMD this week. DISPOSITION: The patient has been discharge home to follow-up with community physician. Departure Diagnosis: Primary Impression: Cough Additional Impression: Asthma exacerbation Condition: Stable Patient Instructions: Asthma, Cough, Chronic, Uncertain Cause, (Adult) Referrals: [facility] Additional Instructions: Thank you very much for allowing us to participate in your care. Your health and safety is our top priority at [facility]. Call your primary care doctor TOMORROW for an appointment during the next 2-4 days and bring all the information and medications prescribed. Have prescriptions filled and follow precisely the directions on the label. If the symptoms get worse and your provider is unavailable, return to the Emergency Department immediately. BEE DUMONT NP Sep 11, 2018 16:41
[2018-09-11] MEDS ORDERED: GUAI120011 PO (19:13)
[2018-09-11] MEDS ORDERED: PRED20TA PO (19:13)
[2018-09-11 20:02] VITALS: BP 160/85; PULSE 66; RESP 18
== END 2018-09-11 20:06 | disposition home or self-care (01) ==
LOC: FTE 14:45
DX: J45.901 Unspecified asthma with (acute) exacerbation (principal); I10 Essential (primary) hypertension; Z79.84 Long term (current) use of oral hypoglycemic drugs
CPT/HCPCS: 71046; 80053; 85025; 94664; Z7610; 36415